=== PATIENT | male | born 1945 | race Caucasian/White ===

== ENCOUNTER 2018-08-24 05:20 | Inpatient (IN) | payer MEDICARE, MEDICAID ==
[~2018-08-24] VITALS: Ht 154.9 cm; Wt 70.9 kg
[2018-08-24] MEDS ORDERED: ALBU2.5V14 NEB (06:15)
[2018-08-24 11:01] VITALS: BP 171/96
[2018-08-24] MEDS ORDERED: METO50TA29 PO (13:08)
[2018-08-24] MEDS ORDERED: TIOT18CA IH (13:08)
[2018-08-24] MEDS ORDERED: PANT40TA3 PO (13:08)
[2018-08-24] MEDS ORDERED: MAG HYDROX/AL HYDROX/SIMETH 30 ML ORAL.SUSP PO PRN (13:15)
[2018-08-24] MEDS ORDERED: METHYL SALICYLATE/MENTHOL TOPICAL OINTMENT 29GM TUBE. TP PRN (13:15)
[2018-08-24 15:43] VITALS: BP 153/94
[2018-08-24 16:08] VITALS: BP 153/94
[2018-08-24 16:47] VITALS: BP 159/94
[2018-08-24] MEDS: ACETAMINOPHEN 325 MG TABLET PO PRN (17:04)
--- NOTE | 2018-08-24 20:04 | CONS ---
DATE OF CONSULTATION: 08/24/2018 ATTENDING PHYSICIAN: MD Dr. Inder Pandey did not note. REASON FOR CONSULTATION: We are asked to see this patient for medical consultation. HISTORY OF PRESENT ILLNESS: The patient is a 73-year-old gentleman recently transferred here from [facility]. He is a retired vice president compliance. He has major depression with some psychotic features, mood changes and some suicidal ideation. When he first showed up, he complained of some right-sided chest wall pain, noncardiac in nature. I ordered a stat 12-lead EKG. It showed a sinus rhythm, rate of 70 beats per minute. There are no acute ST segment changes and I examined the patient. He is comfortable right now and pain free. PAST MEDICAL HISTORY: His past medical history is gleaned from the old records. He has a longstanding history of major depression, asthma due to seasonal allergies, asthmatic bronchitis, obesity, major depression, gastroesophageal reflux disease, profound hearing loss and essential hypertension. MEDICATIONS: Current medicines were reviewed. He takes albuterol as needed, metoprolol, Spiriva, and various p.r.n. medications. ALLERGIES: He has ALLERGIES TO KEFLEX. SOCIAL HISTORY: Nonsmoker, nondrinker. FAMILY HISTORY: Unobtainable. REVIEW OF SYSTEMS: Review of systems is significant for major depression symptoms and suicidal ideation. He has gastroesophageal reflux. He denied any fevers or chills. All other systems were reviewed and determined to be negative. PHYSICAL EXAMINATION: GENERAL: When I saw him, this is a pleasant, but a little bit paranoid gentleman, who was hard of hearing, but is otherwise alert. VITAL SIGNS: His initial vital signs showed a blood pressure of 153/90, pulse is 70 and regular. He was afebrile. HEENT: Head is without trauma. The pupils are reactive. Sclerae are nonicteric. Oropharynx is clear. NECK: Supple. No bruits identified. LUNGS: Otherwise clear. CARDIOVASCULAR: Examination showed regular heart tones. No obvious gallops. Peripheral pulses are palpable and full. ABDOMEN: Soft, scaphoid, nontender, no organomegaly. Bowel sounds are normoactive. EXTREMITIES: Showed no cyanosis or edema. NEUROLOGIC: Focally intact. Speech is fluent. He has no focal deficits. LABORATORY DATA: Pertinent laboratory studies done earlier today showed hemoglobin of 14.0 g/dL, white count of 7000. Urinalysis showed a specific gravity of 1.028. His sodium is 145 mEq, potassium 4.0, creatinine is 0.6 mg/dL. Transaminases and liver panels are all normal. IMPRESSION: 1. This 73-year-old gentleman is admitted with mood disturbances, superimposed underlying depression. 2. He had atypical chest pain, which is noncardiac in nature. 3. Gastroesophageal reflux disease. 4. Essential hypertension. 5. The patient is medically stable. RECOMMENDATIONS: Home meds were reviewed and should be continued. This patient is medically stable. Thank you again for asking us to see this patient for medical evaluation. We shall gladly follow along during the course of his inpatient stay on the behavioral unit. TREVON TUTTLE MD DR: FRANK/nts JOB#: [id number] / [id number] HAYLIE Bee MD
--- NOTE | 2018-08-24 20:43 | PDOC ---
Exam Note: João Note: Please also refer to the separate dictated note~for this date of service dictated separately.~Patient seen individually. Discussed the patient with Nursing staff reviewed the chart.~Reviewed interim history and current functioning. Reviewed vital signs,~Labs/ Radiology~and current medications noted below. Continue current treatment with the changes noted in the dictated addendum note Assessment: Vital Signs: Vital Signs Date Time Temp Pulse Resp B/P (MAP) Pulse Ox O2 Delivery O2 Flow Rate FiO2 08/24/18 16:47 64 159/94 (115) Room Air 08/24/18 16:08 98.1 20 97 Labs: Laboratory Tests Test 08/24/18 13:41 Magnesium Level 2.0 mg/dL (1.8-2.4) Current Medications: Meds: Current Medications Acetaminophen (Tylenol) 650 mg PRN Q6HRS PRN PO PAIN / TEMP Last administered on 08/24/18at 17:04; Start 08/24/18 at 13:15 Multi-Ingredient Ointment (Analgesic [place]) 1 denny PRN QID PRN TP MUSCLE PAIN; Start 08/24/18 at 13:15 Al Hydroxide/Mg Hydroxide (Mylanta Plus Xs) 15 ml PRN AFTMEALHC PRN PO DYSPEPSIA; Start 08/24/18 at 13:15 Magnesium Hydroxide (Milk Of Magnesia) 2,400 mg PRN QHS PRN PO CONSTIPATION; Start 08/24/18 at 13:15 Olanzapine (ZyPREXA ZYDIS) 2.5 mg PRN Q2HR PRN PO PSYCHOSIS/AGITATION Last administered on 08/24/18at 16:15; Start 08/24/18 at 15:45 Lorazepam (Ativan) 0.25 mg Q2HR PRN PO ANXIETY / AGITATION; Start 08/24/18 at 1 5:45 Duloxetine HCl (Cymbalta) 30 mg DAILY PO ; Start 08/25/18 at 09:00 Aripiprazole (Abilify) 2 mg DAILY PO ; Start 08/25/18 at 09:00 Active Scripts Active Reported Spiriva (Tiotropium [place]) 18 Mcg Cap.w.dev 5 Mcg IH DAILY Protonix (Pantoprazole Sodium) 40 Mg Tablet.dr 40 Mg PO DAILY06 Metoprolol Succinate ( Xl ) (Metoprolol Succinate) 50 Mg Tab.er.24h 50 Mg PO DAILY Albuterol Sulfate Conc Neb Soln (Albuterol Sulfate) 2.5 Mg/0.5 Ml Vial.neb 2.5 Mg NEB PRN Q6HRS PRN I have reviewed the current psychotropics carefully including drug interactions. Risk benefit ratio favors no change other than as noted in my dictated progress note. Diagnosis: Problems: (1) Anxiety disorder (2) Major depressive disorder, recurrent episode (3) Impulse control disorder (4) Psychosis, atypical (5) Psychotic depression TIERRA COELHO MD Aug 24, 2018 20:43
[2018-08-24] MEDS: MAGNESIUM HYDROXIDE 2,400 MG/30 ML ORAL.SUSP. PO PRN (22:01)
[2018-08-25 06:01] VITALS: BP 110/74
[2018-08-25] MEDS ORDERED: ARIPiprazole 2 MG TABLET PO SCH (09:00)
[2018-08-25] MEDS: DULoxetine HCL 30 MG CAPSULE.DR PO SCH (09:04)
[2018-08-25 10:46] LABS: THYROID STIM HORMONE (TSH) 0.647 uIU/mL (0.358-3.740)
[2018-08-25 11:06] LABS: THYROXINE 4.8 ug/dL (4.5-12.0)
--- NOTE | 2018-08-25 11:19 | HP ---
ADMIT DATE: 08/24/2018 PSYCHIATRIC ADMISSION HISTORY/EVALUATION This is a late entry, date of service 08/24/2018 covers elements not covered in my initial note. IDENTIFYING DATA: We met with the patient at length the evening of 08/24/2018 and I had been called around midnight by nursing staff after the patient was referred to us from [facility] Emergency Room where he presented from home with active suicidal ideation, worsening symptoms of depression, failure for outpatient treatment and a prior inpatient hospitalization at [facility]. His family, specifically his sister is involved in his care. The patient has been increasingly depressed, hopeless, helpless, worthless, had an active plan to slash his wrists and end his life and contacted the sister who arranged for him to get to the Emergency Room and then referred to us with chief complaint, "Yes, I want to just be . I won't do anything here." HISTORY OF PRESENT ILLNESS: The patient has a history of worsening symptoms of depression, hopelessness, helplessness, worthlessness, sleep and appetite changes. He lives in an apartment by himself, does not drive, takes the bus to get his groceries and feels overwhelmed with his general living situation. He admits to the suicidal ideation as noted above to slash his wrists or slash his carotid artery. He has been somewhat paranoid as well. Additionally, he is somewhat hard of hearing, which makes it even harder for him to relate to people. No clear history of bipolar disorder. He does have some short-term memory deficits. PAST PSYCHIATRIC HISTORY: As above, he was an inpatient at [facility] in the past, but did not follow up with outpatient treatment and did not continue his prescribed psychotropics post-discharge. PAST MEDICAL HISTORY: Asthma, seasonal allergies, bronchitis, eosinophilia, GERD, hard of hearing, hypertension. DIET: Regular. ACCU-CHEKS: None. Takes medications whole. CODE STATUS: Full code. ALLERGIES: HYDROCODONE, BENICAR. FAMILY HISTORY: Noncontributory. SOCIAL HISTORY: No history of alcohol, drug abuse, physical, sexual, or elder abuse history is noted. He is not known to be a perpetrator. 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 REACTION TO HOSPITALIZATION: The patient accepting of it. ASSETS: Supportive sister, reasonably cognitively intact. MENTAL STATUS EXAMINATION: The patient was seen individually evening of 08/24/2018. He is oriented to himself, situation. He was aware of the year, felt the month was July knew the president was president Nikole, unable to do serial 7's other than one step. He is hard of hearing. Speech has some latency, coherent, often responses monosyllabic. Abstraction fair, computation impaired, language function intact, attention span short. Mood is depressed, anxious. Affect is mood congruent. He denies active suicidal ideation when I interviewed him. LABORATORY DATA: Reviewed. IMPRESSION: Major depressive disorder, recurrent with rule out psychotic features; anxiety disorder, unspecified; mild cognitive impairment. Rest diagnoses as above. PLAN: Admit to Geropsychiatry Unit at [facility]. I will see the patient individually from a psychiatric standpoint. Medical followup with Dr. Norman. We will get past psychiatric records from [facility]. Start the patient on Cymbalta 30 mg a day with plan to gradually increase it and Abilify 2 mg a day for his psychotic symptoms and to augment the Cymbalta. We will make further decisions as the hospitalization progresses and would like to ensure that outpatient followup post-discharge is definitely implemented this time. TIERRA COELHO MD DR: MIRIAM/neville JOB#: [id number] / [id number]
[2018-08-25 16:01] VITALS: BP 135/84
--- NOTE | 2018-08-25 22:46 | PDOC ---
Exam Note: João Note: Please also refer to the separate dictated note~for this date of service dictated separately.~Patient seen individually. Discussed the patient with Nursing staff reviewed the chart.~Reviewed interim history and current functioning. Reviewed vital signs,~Labs/ Radiology~and current medications noted below. Continue current treatment with the changes noted in the dictated addendum note Assessment: Vital Signs: Vital Signs Date Time Temp Pulse Resp B/P (MAP) Pulse Ox O2 Delivery O2 Flow Rate FiO2 08/25/18 16:01 98.4 71 20 135/84 (101) 98 08/25/18 06:01 Room Air I&O Intake and Output 08/25/18 06:59 Intake Total 360 ml Balance 360 ml Intake Oral 360 ml Current Medications: Meds: Current Medications Acetaminophen (Tylenol) 650 mg PRN Q6HRS PRN PO PAIN / TEMP Last administered on 08/24/18at 17:04; Start 08/24/18 at 13:15 Multi-Ingredient Ointment (Analgesic [place]) 1 denny PRN QID PRN TP MUSCLE PAIN; Start 08/24/18 at 13:15 Al Hydroxide/Mg Hydroxide (Mylanta Plus Xs) 15 ml PRN AFTMEALHC PRN PO DYSPEPSIA; Start 08/24/18 at 13:15 Magnesium Hydroxide (Milk Of Magnesia) 2,400 mg PRN QHS PRN PO CONSTIPATION Last administered on 08/24/18at 22:01; Start 08/24/18 at 13:15 Olanzapine (ZyPREXA ZYDIS) 2.5 mg PRN Q2HR PRN PO PSYCHOSIS/AGITATION Last administered on 08/25/18at 16:13; Start 08/24/18 at 15:45 Lorazepam (Ativan) 0.25 mg Q2HR PRN PO ANXIETY / AGITATION; Start 08/24/18 at 15:45 Duloxetine HCl (Cymbalta) 30 mg DAILY PO Last administered on 08/25/18at 09:04; Start 08/25/18 at 09:00 Aripiprazole (Abilify) 2 mg DAILY PO Last administered on 08/25/18at 09:04; Start 08/25/18 at 09:00; Stop 08/25/18 at 18:45; Status DC Risperidone (RisperDAL) 0.5 mg DAILY PO ; Start 08/26/18 at 09:00 Active Scripts Active Reported Spiriva (Tiotropium [place]) 18 Mcg Cap.w.dev 5 Mcg IH DAILY Protonix (Pantoprazole Sodium) 40 Mg Tablet.dr 40 Mg PO DAILY06 Metoprolol Succinate ( Xl ) (Metoprolol Succinate) 50 Mg Tab.er.24h 50 Mg PO DAILY Albuterol Sulfate Conc Neb Soln (Albuterol Sulfate) 2.5 Mg/0.5 Ml Vial.neb 2.5 Mg NEB PRN Q6HRS PRN I have reviewed the current psychotropics carefully including drug interactions. Risk benefit ratio favors no change other than as noted in my dictated progress note. Diagnosis: Problems: (1) Anxiety disorder (2) Major depressive disorder, recurrent episode (3) Impulse control disorder (4) Psychosis, atypical (5) Psychotic depression TIERRA COELHO MD Aug 25, 2018 22:46
[2018-08-26 04:09] LABS: HEMOGLOBIN A1C 5.5 % (4.8-5.6)
[2018-08-26 05:58] VITALS: BP 148/90
[2018-08-26] MEDS: DULoxetine HCL 30 MG CAPSULE.DR PO SCH (08:57)
[2018-08-26] MEDS: risperiDONE 0.25 MG TABLET. PO SCH (08:58)
[2018-08-26] MEDS: ACETAMINOPHEN 325 MG TABLET PO PRN (10:16)
--- NOTE | 2018-08-26 11:58 | PN ---
DATE: 08/25/2018 PSYCHIATRIC PROGRESS NOTE This late entry of 08/25/2018 covers elements not covered in my initial note. SUBJECTIVE: I met with the patient in the evening. The patient slept 10 hours previous night. Per nursing report, the patient has been hyper-catholic, psychotic, paranoid. He was questioning why the nursing staffs are scanning his forehead for the temperature and believed there was some nefarious reason for it. He was accusatory to staff. Nursing staff feels he has significantly greater amount of psychotic symptoms than we were initially aware of. No CV, , pulmonary, eye system symptoms on review. Hard of hearing. I had to talk loudly into his ear. MENTAL STATUS EXAM: Oriented to himself and situation. Speech has some latency, coherent. He was somewhat sedated as I met with him in the evening following the p.r.n. Zyprexa. Abstraction fair, computation impaired, language function intact, attention span short. Mood and affect somewhat withdrawn. LABORATORY DATA: Reviewed. IMPRESSION: Major depressive disorder with psychotic features, possible schizoaffective disorder, mixed with psychotic features, hard of hearing. Rest unchanged. PLAN: Continue current psychotropics. Cymbalta 30 mg a day with a plan to increase it, Zyprexa p.r.n., Ativan p.r.n. Change Abilify 2 mg a day to Risperdal 0.5 mg p.o. at bedtime given his significant psychotic symptoms. May consider a mood stabilizer depending on how he does with the initial changes. Reviewed all of these at some length. MAN Kayce COELHO MD DR: MIRIAM/neville JOB#: [id number] / [id number]
--- NOTE | 2018-08-26 14:52 | EKG ---
[address] [address] Test Date: 2018-08-24 Test Time: 17:43:18 Pat Name: JACQUELINE DE LA PAZ Department: Room: [address] [place] [address] Gender: M Director News: MAGDA : 1945 Requested By: TREVON TUTTLE Order Number: [id number] Reading MD: Mino Yang Measurements Intervals [place] Rate: 61 P: 22 TX: 180 QRS: 46 QRSD: 90 T: 31 QT: 438 QTc: 442 Interpretive Statements SINUS RHYTHM NONSPECIFIC ST-T WAVE CHANGES. Electronically Signed On 09-16-2018 9:31:49 CDT by Mino Yang
[2018-08-26 15:46] VITALS: BP 159/92
[2018-08-26] MEDS: CHOLECALCIFEROL (VITAMIN D3) 50,000 UNIT CAPSULE PO SCH ×2 (17:30→18:07)
--- NOTE | 2018-08-26 22:38 | PDOC ---
Exam Note: João Note: Please also refer to the separate dictated note~for this date of service dictated separately.~Patient seen individually. Discussed the patient with Nursing staff reviewed the chart.~Reviewed interim history and current functioning. Reviewed vital signs,~Labs/ Radiology~and current medications noted below. Continue current treatment with the changes noted in the dictated addendum note Assessment: Vital Signs: Vital Signs Date Time Temp Pulse Resp B/P (MAP) Pulse Ox O2 Delivery O2 Flow Rate FiO2 08/26/18 15:46 97.3 109 18 159/92 (114) 98 08/25/18 06:01 Room Air I&O Intake and Output 08/26/18 07:00 Intake Total 940 ml Balance 940 ml Intake Oral 940 ml Current Medications: Meds: Current Medications Acetaminophen (Tylenol) 650 mg PRN Q6HRS PRN PO PAIN / TEMP Last administered on 08/26/18at 10:16; Start 08/24/18 at 13:15 Multi-Ingredient Ointment (Analgesic [place]) 1 denny PRN QID PRN TP MUSCLE PAIN; Start 08/24/18 at 13:15 Al Hydroxide/Mg Hydroxide (Mylanta Plus Xs) 15 ml PRN AFTMEALHC PRN PO DYSPEPSIA; Start 08/24/18 at 13:15 Magnesium Hydroxide (Milk Of Magnesia) 2,400 mg PRN QHS PRN PO CONSTIPATION Last administered on 08/24/18at 22:01; Start 08/24/18 at 13:15 Olanzapine (ZyPREXA ZYDIS) 2.5 mg PRN Q2HR PRN PO PSYCHOSIS/AGITATION Last administered on 08/25/18at 16:13; Start 08/24/18 at 15:45 Lorazepam (Ativan) 0.25 mg Q2HR PRN PO ANXIETY / AGITATION; Start 08/24/18 at 15:45 Duloxetine HCl (Cymbalta) 30 mg DAILY PO Last administered on 08/26/18at 08:57; Start 08/25/18 at 09:00 Aripiprazole (Abilify) 2 mg DAILY PO Last administered on 08/25/18 09:04; Start 08/25/18 at 09:00; Stop 08/25/18 at 18:45; Status DC Risperidone (RisperDAL) 0.5 mg DAILY PO Last administered on 6/10/19at 08:58; Start 08/26/18 at 09:00 Vitamin D (Vitamin D3) 50,000 unit WEEKLY PO ; Start 08/26/18 at 17:30 Active Scripts Active Reported Spiriva (Tiotropium [place]) 18 Mcg Cap.w.dev 5 Mcg IH DAILY Protonix (Pantoprazole Sodium) 40 Mg Tablet.dr 40 Mg PO DAILY06 Metoprolol Succinate ( Xl ) (Metoprolol Succinate) 50 Mg Tab.er.24h 50 Mg PO DAILY Albuterol Sulfate Conc Neb Soln (Albuterol Sulfate) 2.5 Mg/0.5 Ml Vial.neb 2.5 Mg NEB PRN Q6HRS PRN I have reviewed the current psychotropics carefully including drug interactions. Risk benefit ratio favors no change other than as noted in my dictated progress note. Diagnosis: Problems: (1) Anxiety disorder (2) Major depressive disorder, recurrent episode (3) Impulse control disorder (4) Psychosis, atypical (5) Psychotic depression TIERRA COELHO MD Aug 26, 2018 22:38
[2018-08-27 05:39] VITALS: BP 153/82
[2018-08-27] MEDS: risperiDONE 0.25 MG TABLET. PO SCH (08:44)
[2018-08-27] MEDS: DULoxetine HCL 30 MG CAPSULE.DR PO SCH (08:44)
[2018-08-27 09:06] LABS: BASO % 1 % (0-3); EOS # 0.2 x10^3/uL (0.0-0.7); EOS % 4 % (0-3); HEMATOCRIT 44.5 % (39.0-53.0); HEMOGLOBIN 14.8 g/dL (13.0-17.5); LYMPH # 0.6 x10^3/uL (1.0-4.8); LYMPH % 14 % (24-48); MEAN CORPUSCULAR HEMOGLOBIN 32 pg (25-35); MEAN CORPUSCULAR HGB CONC 33 g/dL (31-37); MEAN CORPUSCULAR VOLUME 96 fL (79-100); MONO # 0.3 x10^3/uL (0.0-1.1); MONO % 7 % (0-9); NEUT # 3.5 x10^3uL (1.8-7.7); NEUT % 74 % (31-73); PLATELET COUNT 244 x10^3/uL (140-400); RED BLOOD COUNT 4.64 x10^6/uL (4.30-5.70); RED CELL DISTRIBUTION WIDTH 13.7 % (11.5-14.5); WHITE BLOOD COUNT 4.7 x10^3/uL (4.0-11.0)
[2018-08-27 09:25] LABS: ALBUMIN 3.4 g/dL (3.4-5.0); ALBUMIN/GLOBULIN RATIO 0.9 (1.0-1.7); CALCIUM 8.9 mg/dL (8.5-10.1); GFR 73.5; POTASSIUM 3.8 mmol/L (3.5-5.1); TOTAL BILIRUBIN 0.4 mg/dL (0.2-1.0)
[2018-08-27 16:35] VITALS: BP 129/90
--- NOTE | 2018-08-27 22:44 | PDOC ---
Exam Note: João Note: Please also refer to the separate dictated note~for this date of service dictated separately.~Patient seen individually. Discussed the patient with Nursing staff reviewed the chart.~Reviewed interim history and current functioning. Reviewed vital signs,~Labs/ Radiology~and current medications noted below. Continue current treatment with the changes noted in the dictated addendum note Assessment: Vital Signs: Vital Signs Date Time Temp Pulse Resp B/P (MAP) Pulse Ox O2 Delivery O2 Flow Rate FiO2 08/27/18 16:35 98.4 108 22 129/90 (103) 97 08/25/18 06:01 Room Air I&O Intake and Output 08/27/18 07:00 Intake Total 960 ml Balance 960 ml Intake Oral 960 ml Labs: Laboratory Tests Test 08/27/18 08:50 White Blood Count 4.7 x10^3/uL (4.0-11.0) Red Blood Count 4.64 x10^6/uL (4.30-5.70) Hemoglobin 14.8 g/dL (13.0-17.5) Hematocrit 44.5 % (39.0-53.0) Mean Corpuscular Volume 96 fL (79-100) Mean Corpuscular Hemoglobin 32 pg (25-35) Mean Corpuscular Hemoglobin Concent 33 g/dL (31-37) Red Cell Distribution Width 13.7 % (11.5-14.5) Platelet Count 244 x10^3/uL (140-400) Neutrophils (%) (Auto) 74 % (31-73) H Lymphocytes (%) (Auto) 14 % (24-48) L Monocytes (%) (Auto) 7 % (0-9) Eosinophils (%) (Auto) 4 % (0-3) H Basophils (%) (Auto) 1 % (0-3) Neutrophils # (Auto) 3.5 x10^3uL (1.8-7.7) Lymphocytes # (Auto) 0.6 x10^3/uL (1.0-4.8) L Monocytes # (Auto) 0.3 x10^3/uL (0.0-1.1) Eosinophils # (Auto) 0.2 x10^3/uL (0.0-0.7) Basophils # (Auto) 0.0 x10^3/uL (0.0-0.2) Sodium Level 142 mmol/L (136-145) Potassium Level 3.8 mmol/L (3.5-5.1) Chloride Level 105 mmol/L (98-107) Carbon Dioxide Level 29 mmol/L (21-32) Anion Gap 8 (6-14) Blood Urea Nitrogen 17 mg/dL (8-26) Creatinine 1.0 mg/dL (0.7-1.3) Estimated GFR (Cockcroft-Gault) 73.5 BUN/Creatinine Ratio 17 (6-20) Glucose Level 163 mg/dL (70-99) H Calcium Level 8.9 mg/dL (8.5-10.1) Total Bilirubin 0.4 mg/dL (0.2-1.0) Aspartate Amino Transferase (AST) 14 U/L (15-37) L Alanine Aminotransferase (ALT) 21 U/L (16-63) Alkaline Phosphatase 61 U/L (46-116) Total Protein 7.0 g/dL (6.4-8.2) Albumin 3.4 g/dL (3.4-5.0) Albumin/Globulin Ratio 0.9 (1.0-1.7) L Current Medications: Meds: Current Medications Acetaminophen (Tylenol) 650 mg PRN Q6HRS PRN PO PAIN / TEMP Last administered on 08/26/18at 10:16; Start 08/24/18 at 13:15 Multi-Ingredient Ointment (Analgesic [place]) 1 denny PRN QID PRN TP MUSCLE PAIN; Start 08/24/18 at 13:15 Al Hydroxide/Mg Hydroxide (Mylanta Plus Xs) 15 ml PRN AFTMEALHC PRN PO DYSPEPSIA; Start 08/24/18 at 13:15 Magnesium Hydroxide (Milk Of Magnesia) 2,400 mg PRN QHS PRN PO CONSTIPATION Last administered on 08/24/18at 22:01; Start 08/24/18 at 13:15 Olanzapine (ZyPREXA ZYDIS) 2.5 mg PRN Q2HR PRN PO PSYCHOSIS/AGITATION Last administered on 08/27/18at 15:27; Start 08/24/18 at 15:45 Lorazepam (Ativan) 0.25 mg Q2HR PRN PO ANXIETY / AGITATION; Start 08/24/18 at 15:45 Duloxetine HCl (Cymbalta) 30 mg DAILY PO Last administered on 08/27/18at 08:44; Start 08/25/18 at 09:00; Stop 08/27/18 at 16:42; Status DC Aripiprazole (Abilify) 2 mg DAILY PO Last administered on 08/25/18at 09:04; Start 08/25/18 at 09:00; Stop 08/25/18 at 18:45; Status DC Risperidone (RisperDAL) 0.5 mg DAILY PO Last administered on 08/27/18at 08:44; Start 08/26/18 at 09:00 Vitamin D (Vitamin D3) 50,000 unit WEEKLY PO ; Start 08/26/18 at 17:30 Duloxetine HCl (Cymbalta) 60 mg DAILY PO ; Start 08/28/18 at 09:00 Active Scripts Active Reported Spiriva (Tiotropium [place]) 18 Mcg Cap.w.dev 5 Mcg IH DAILY Protonix (Pantoprazole Sodium) 40 Mg Tablet.dr 40 Mg PO DAILY06 Metoprolol Succinate ( Xl ) (Metoprolol Succinate) 50 Mg Tab.er.24h 50 Mg PO DAILY Albuterol Sulfate Conc Neb Soln (Albuterol Sulfate) 2.5 Mg/0.5 Ml Vial.neb 2.5 Mg NEB PRN Q6HRS PRN I have reviewed the current psychotropics carefully including drug interactions. Risk benefit ratio favors no change other than as noted in my dictated progress note. Diagnosis: Problems: (1) Anxiety disorder (2) Major depressive disorder, recurrent episode (3) Impulse control disorder (4) Psychosis, atypical (5) Psychotic depression TIERRA COELHO MD Aug 27, 2018 22:44
--- NOTE | 2018-08-28 00:51 | PN ---
DATE: 08/26/2018 PSYCHIATRIC PROGRESS NOTE This late entry 08/26/2018 covers elements not covered in my initial note. SUBJECTIVE: I met with the patient in the evening. The patient slept 7-3/4 hours previous night. He has had no behavior problems, remains hard of hearing. He has been paranoid, suspicious, and resistive to medications. He has received Zyprexa p.r.n. and was little sedated in the evening as I met with him. REVIEW OF SYSTEMS: Hard of hearing. No CV, , pulmonary, eye system symptoms on review. MENTAL STATUS EXAM: Oriented to himself and situation. Speech is coherent, has some latency. Abstraction fair. Computation impaired. Language function intact. Attention span short. Mood and affect still somewhat withdrawn. LABORATORY DATA: Reviewed. IMPRESSION: Major depressive disorder with psychotic features; psychotic disorder, unspecified versus schizoaffective disorder, bipolar type, with acute exacerbation. Rest unchanged. PLAN: No change from initial note. MAN Kayce COELHO MD DR: MIRIAM/neville JOB#: [id number] / [id number]
[2018-08-28 05:58] VITALS: BP 129/77
[2018-08-28] MEDS: risperiDONE 0.25 MG TABLET. PO SCH (08:12)
[2018-08-28] MEDS: DULoxetine HCL 60 MG CAPSULE.DR PO SCH (08:12)
[2018-08-28 15:43] VITALS: BP 131/83
--- NOTE | 2018-08-28 23:02 | PDOC ---
Exam Note: João Note: Please also refer to the separate dictated note~for this date of service dictated separately.~Patient seen individually. Discussed the patient with Nursing staff reviewed the chart.~Reviewed interim history and current functioning. Reviewed vital signs,~Labs/ Radiology~and current medications noted below. Continue current treatment with the changes noted in the dictated addendum note Assessment: Vital Signs: Vital Signs Date Time Temp Pulse Resp B/P (MAP) Pulse Ox O2 Delivery O2 Flow Rate FiO2 08/28/18 15:43 98.1 110 22 131/83 (99) 96 08/25/18 06:01 Room Air I&O Intake and Output 08/28/18 06:59 Intake Total 1080 ml Balance 1080 ml Intake Oral 1080 ml Current Medications: Meds: Current Medications Acetaminophen (Tylenol) 650 mg PRN Q6HRS PRN PO PAIN / TEMP Last administered on 08/26/18at 10:16; Start 08/24/18 at 13:15 Multi-Ingredient Ointment (Analgesic [place]) 1 denny PRN QID PRN TP MUSCLE PAIN; S tart 08/24/18 at 13:15 Al Hydroxide/Mg Hydroxide (Mylanta Plus Xs) 15 ml PRN AFTMEALHC PRN PO DYSPEPSIA; Start 08/24/18 at 13:15 Magnesium Hydroxide (Milk Of Magnesia) 2,400 mg PRN QHS PRN PO CONSTIPATION Last administered on 08/24/18at 22:01; Start 08/24/18 at 13:15 Olanzapine (ZyPREXA ZYDIS) 2.5 mg PRN Q2HR PRN PO PSYCHOSIS/AGITATION Last administered on 08/27/18at 15:27; Start 08/24/18 at 15:45 Lorazepam (Ativan) 0.25 mg Q2HR PRN PO ANXIETY / AGITATION; Start 08/24/18 at 15:45 Duloxetine HCl (Cymbalta) 30 mg DAILY PO Last administered on 08/27/18at 08:44; Start 08/25/18 at 09:00; Stop 08/27/18 at 16:42; Status DC Aripiprazole (Abilify) 2 mg DAILY PO Last administered on 08/25/18at 09:04; Start 08/25/18 at 09:00; Stop 08/25/18 at 18:45; Status DC Risperidone (RisperDAL) 0.5 mg DAILY PO Last administered on 08/28/18at 08:12; Start 08/26/18 at 09:00; Stop 08/28/18 at 16:48; Status DC Vitamin D (Vitamin D3) 50,000 unit WEEKLY PO ; Start 08/26/18 at 17:30 Duloxetine HCl (Cymbalta) 60 mg DAILY PO Last administered on 08/28/18at 08:12; Start 08/28/18 at 09:00 Risperidone (RisperDAL) 1 mg DAILY SL ; Start 08/29/18 at 09:00 Active Scripts Active Reported Spiriva (Tiotropium [place]) 18 Mcg Cap.w.dev 5 Mcg IH DAILY Protonix (Pantoprazole Sodium) 40 Mg Tablet.dr 40 Mg PO DAILY06 Metoprolol Succinate ( Xl ) (Metoprolol Succinate) 50 Mg Tab.er.24h 50 Mg PO DAILY Albuterol Sulfate Conc Neb Soln (Albuterol Sulfate) 2.5 Mg/0.5 Ml Vial.neb 2.5 Mg NEB PRN Q6HRS PRN I have reviewed the current psychotropics carefully including drug interactions. Risk benefit ratio favors no change other than as noted in my dictated progress note. Diagnosis: Problems: (1) Anxiety disorder (2) Major depressive disorder, recurrent episode (3) Impulse control disorder (4) Psychosis, atypical (5) Psychotic depression TIERRA COELHO MD Aug 28, 2018 23:02
--- NOTE | 2018-08-29 00:17 | PN ---
DATE: 08/27/2018 PSYCHIATRIC PROGRESS NOTE This late entry of 08/27/2018 covers elements not covered in my initial note. SUBJECTIVE: I met with the patient in the evening. The patient slept 5-1/4 hours previous night. He remains paranoid, suspicious, and when the nursing staff took his temperature by the temporal-frontal scan, he is convinced they implanted a chip in him. Nothing staff can do can talk him out of it. Then, I addressed this with him. In the future, nursing staff will check his temperature by the oral thermometer traditional use. REVIEW OF SYSTEMS: No CV, , pulmonary, eye system symptoms on review. He is hard of hearing. MENTAL STATUS EXAM: Oriented to himself and situation. Speech has some latency, coherent, often responses monosyllabic. Abstraction fair, computation impaired, language function intact, attention span short. Mood and affect, somewhat paranoid, anxious, still depressed. LABORATORY DATA: Reviewed. IMPRESSION: Major depressive disorder with psychotic features, possible schizoaffective disorder, bipolar type, mixed with psychotic features, rest unchanged, mild cognitive impairment. PLAN: Increase Cymbalta to 60 mg a day after he has been on 30 for 3 days. Continue Risperdal 0.5 mg daily, may need to increase this if psychosis persists. TIERRA COELHO MD DR: MIRIAM/neville JOB#: [id number] / [id number]
[2018-08-29 06:09] VITALS: BP 165/92
[2018-08-29] MEDS: DULoxetine HCL 60 MG CAPSULE.DR PO SCH (08:14)
[2018-08-29] MEDS: risperiDONE ORAL 1 MG/ML 30ml BOTTLE. SL SCH (08:15)
[2018-08-29] MEDS: ACETAMINOPHEN 325 MG TABLET PO PRN (12:03)
[2018-08-29] MEDS: LORazepam 0.5 MG TABLET PO PRN (15:29)
[2018-08-29 16:03] VITALS: BP 131/81
--- NOTE | 2018-08-29 22:21 | PDOC ---
Exam Note: João Note: Please also refer to the separate dictated note~for this date of service dictated separately.~Patient seen individually. Discussed the patient with Nursing staff reviewed the chart.~Reviewed interim history and current functioning. Reviewed vital signs,~Labs/ Radiology~and current medications noted below. Continue current treatment with the changes noted in the dictated addendum note Assessment: Vital Signs: Vital Signs Date Time Temp Pulse Resp B/P (MAP) Pulse Ox O2 Delivery O2 Flow Rate FiO2 08/29/18 16:03 98.0 98 22 131/81 (98) 98 08/25/18 06:01 Room Air I&O Intake and Output 08/29/18 07:00 Intake Total 800 ml Balance 800 ml Intake Oral 800 ml Current Medications: Meds: Current Medications Acetaminophen (Tylenol) 650 mg PRN Q6HRS PRN PO PAIN / TEMP Last administered on 08/29/18at 12:03; Start 08/24/18 at 13:15 Multi-Ingredient Ointment (Analgesic [place]) 1 denny PRN QID PRN TP MUSCLE PAIN; Start 08/24/18 at 13:15 Al Hydroxide/Mg Hydroxide (Mylanta Plus Xs) 15 ml PRN AFTMEALHC PRN PO DYSPEPSIA; Start 08/24/18 at 13:15 Magnesium Hydroxide (Milk Of Magnesia) 2,400 mg PRN QHS PRN PO CONSTIPATION Last administered on 08/24/18at 22:01; Start 08/24/18 at 13:15 Olanzapine (ZyPREXA ZYDIS) 2.5 mg PRN Q2HR PRN PO PSYCHOSIS/AGITATION Last administered on 08/27/18at 15:27; Start 08/24/18 at 15:45 Lorazepam (Ativan) 0.25 mg Q2HR PRN PO ANXIETY / AGITATION Last administered on 08/29/18at 15:29; Start 08/24/18 at 15:45 Duloxetine HCl (Cymbalta) 30 mg DAILY PO Last administered on 08/27/18at 08:44; Start 08/25/18 at 09:00; Stop 08/27/18 at 16:42; Status DC Aripiprazole (Abilify) 2 mg DAILY PO Last administered on 08/25/18 09:04; Start 08/25/18 at 09:00; Stop 08/25/18 at 18:45; Status DC Risperidone (RisperDAL) 0.5 mg DAILY PO Last administered on 08/28/18at 08:12; Start 08/26/18 at 09:00; Stop 08/28/18 at 16:48; Status DC Vitamin D (Vitamin D3) 50,000 unit WEEKLY PO ; Start 08/26/18 at 17:30 Duloxetine HCl (Cymbalta) 60 mg DAILY PO Last administered on 08/29/18at 08:14; Start 08/28/18 at 09:00 Risperidone (RisperDAL) 1 mg DAILY SL Last administered on 08/29/18at 08:15; Start 08/29/18 at 09:00 Active Scripts Active Reported Spiriva (Tiotropium [place]) 18 Mcg Cap.w.dev 5 Mcg IH DAILY Protonix (Pantoprazole Sodium) 40 Mg Tablet.dr 40 Mg PO DAILY06 Metoprolol Succinate ( Xl ) (Metoprolol Succinate) 50 Mg Tab.er.24h 50 Mg PO DAILY Albuterol Sulfate Conc Neb Soln (Albuterol Sulfate) 2.5 Mg/0.5 Ml Vial.neb 2.5 Mg NEB PRN Q6HRS PRN I have reviewed the current psychotropics carefully including drug interactions. Risk benefit ratio favors no change other than as noted in my dictated progress note. Diagnosis: Problems: (1) Anxiety disorder (2) Major depressive disorder, recurrent episode (3) Impulse control disorder (4) Psychosis, atypical (5) Psychotic depression TIERRA COELHO MD Aug 29, 2018 22:21
[2018-08-30 06:42] VITALS: BP 136/57
[2018-08-30] MEDS: DULoxetine HCL 60 MG CAPSULE.DR PO SCH (08:39)
[2018-08-30] MEDS: risperiDONE ORAL 1 MG/ML 30ml BOTTLE. SL SCH (08:39)
[2018-08-30 15:22] VITALS: BP 155/94
--- NOTE | 2018-08-30 17:17 | PN ---
DATE: 08/28/2018 PSYCHIATRIC PROGRESS NOTE This late entry 08/28/2018 covers elements not covered in my initial note. SUBJECTIVE: I met with the patient in the evening. The patient slept 7-1/4 hours previous night. He has been paranoid, delusional, suspicious, withdrawn and depressed. He has been trying to cheek his medications, telling nursing staff "I can't take my medications." We will change to Risperdal 0.5 mg daily to liquid 1 mg daily. REVIEW OF SYSTEMS: Ambulation impaired. No CV, , pulmonary, eye system symptoms on review. Reliability varies. MENTAL STATUS EXAM: Oriented to himself and situation. Speech is low in rate and rhythm, low in volume, coherent, abstraction fair, computation impaired, language function intact, attention span short. Mood and affect remains depressed, withdrawn and paranoid. LABORATORY DATA: Reviewed. IMPRESSION: Unchanged from initial note. PLAN: No change from initial note and increase the Risperdal as above. MAN Kayce COELHO MD DR: MIRIAM/neville JOB#: [id number] / [id number]
[2018-08-30] MEDS: LORazepam 0.5 MG TABLET PO PRN (19:46)
--- NOTE | 2018-08-30 22:43 | PDOC ---
Exam Note: João Note: Please also refer to the separate dictated note~for this date of service dictated separately.~Patient seen individually. Discussed the patient with Nursing staff reviewed the chart.~Reviewed interim history and current functioning. Reviewed vital signs,~Labs/ Radiology~and current medications noted below. Continue current treatment with the changes noted in the dictated addendum note Assessment: Vital Signs/I&O: Vital Signs Date Time Temp Pulse Resp B/P (MAP) Pulse Ox O2 Delivery O2 Flow Rate FiO2 08/30/18 15:22 98.5 78 20 155/94 (114) 96 08/25/18 06:01 Room Air I & O 08/29/18 08/29/18 08/30/18 15:00 23:00 07:00 Intake Total 720 ml 360 ml Balance 720 ml 360 ml Current Medications: I have reviewed the current psychotropics carefully including drug interactions. Risk benefit ratio favors no change other than as noted in my dictated progress note. Diagnosis: Problems: (1) Anxiety disorder (2) Major depressive disorder, recurrent episode (3) Impulse control disorder (4) Psychosis, atypical (5) Psychotic depression TIERRA COELHO MD Aug 30, 2018 22:43
--- NOTE | 2018-08-31 00:20 | PN ---
DATE: 08/29/2018 PSYCHIATRIC PROGRESS NOTE This is a late entry 08/29, covers elements are not covered in my initial note. SUBJECTIVE: I met with the patient in the evening of 08/29/ at some length in his room. The patient slept 7-1/2 hours previous night. He refused his medications in the morning, later took his Risperdal, refused Cymbalta. He is convinced the nursing staff has implanted a chip in his head after they took his temperature by the frontotemporal scan thermometer. He tried to pocket his medications previous night, remains psychotic per nursing report. REVIEW OF SYSTEMS: Hard of hearing. Impaired ambulation. No CV, , pulmonary, eye system symptoms on review. MENTAL STATUS EXAM: Oriented to himself and situation. Speech has some latency, coherent, often responses monosyllabic. Abstraction fair, computation impaired, language function intact, attention span short. Mood and affect remain somewhat depressed, withdrawn, anxious and paranoid. LABORATORY DATA: Reviewed. IMPRESSION: Unchanged from initial note. Major depressive disorder with psychotic features; anxiety disorder, unspecified; mild cognitive impairment. PLAN: Continue psychotropics from initial note including Cymbalta and Risperdal, which was increased and the Zyprexa p.r.n. and Ativan p.r.n. TIERRA COELHO MD DR: MIRIAM/neville JOB#: [id number] / [id number]
[2018-08-31 05:42] VITALS: BP 124/81
[2018-08-31] MEDS: DULoxetine HCL 60 MG CAPSULE.DR PO SCH (07:52)
[2018-08-31] MEDS: risperiDONE ORAL 1 MG/ML 30ml BOTTLE. SL SCH (07:54)
[2018-08-31] MEDS: LORazepam 0.5 MG TABLET PO PRN (12:34)
[2018-08-31 15:44] VITALS: BP 144/89
--- NOTE | 2018-08-31 22:52 | PDOC ---
Exam Note: João Note: Please also refer to the separate dictated note~for this date of service dictated separately.~Patient seen individually. Discussed the patient with Nursing staff reviewed the chart.~Reviewed interim history and current functioning. Reviewed vital signs,~Labs/ Radiology~and current medications noted below. Continue current treatment with the changes noted in the dictated addendum note Assessment: Vital Signs/I&O: Vital Signs Date Time Temp Pulse Resp B/P (MAP) Pulse Ox O2 Delivery O2 Flow Rate FiO2 08/31/18 15:44 98.0 77 16 144/89 (107) 96 08/31/18 05:42 Room Air I & O 08/30/18 08/30/18 08/31/18 14:59 22:59 06:59 Intake Total 480 ml 120 ml 120 ml Balance 480 ml 120 ml 120 ml Current Medications: I have reviewed the current psychotropics carefully including drug interactions. Risk benefit ratio favors no change other than as noted in my dictated progress note. Diagnosis: Problems: (1) Anxiety disorder (2) Major depressive disorder, recurrent episode (3) Impulse control disorder (4) Psychosis, atypical (5) Psychotic depression TIERRA COELHO MD Aug 31, 2018 22:52
[2018-09-01 05:46] VITALS: BP 168/92
[2018-09-01] MEDS: LORazepam 0.5 MG TABLET PO PRN (07:54)
[2018-09-01] MEDS: risperiDONE ORAL 1 MG/ML 30ml BOTTLE. SL SCH (07:55)
[2018-09-01] MEDS: DULoxetine HCL 60 MG CAPSULE.DR PO SCH (07:55)
[2018-09-01 15:30] VITALS: BP 135/93
--- NOTE | 2018-09-01 21:59 | PN ---
DATE: 08/30/2018 PSYCHIATRIC PROGRESS NOTE This late entry 08/30/2018 covers elements not covered in my initial note. SUBJECTIVE: I met with the patient in the evening. The patient slept 7 hours previous night, is compliant with his medications, but remains somewhat paranoid, withdrawn. REVIEW OF SYSTEMS: Hard of hearing. No CV, , pulmonary, eye system symptoms on review. Gait is somewhat unsteady. MENTAL STATUS EXAM: Oriented to himself and situation. Speech has moderate latency, often responses monosyllabic. Abstraction fair, computation impaired, language function intact, attention span short. Mood and affect somewhat withdrawn. LABORATORY DATA: Reviewed. IMPRESSION: Unchanged from initial note. PLAN: No change from initial note. MAN Kayce COELHO MD DR: MIRIAM/neville JOB#: [id number] / [id number]
--- NOTE | 2018-09-01 22:18 | PDOC ---
Exam Note: João Note: Please also refer to the separate dictated note~for this date of service dictated separately.~Patient seen individually. Discussed the patient with Nursing staff reviewed the chart.~Reviewed interim history and current functioning. Reviewed vital signs,~Labs/ Radiology~and current medications noted below. Continue current treatment with the changes noted in the dictated addendum note Assessment: Vital Signs/I&O: Vital Signs Date Time Temp Pulse Resp B/P (MAP) Pulse Ox O2 Delivery O2 Flow Rate FiO2 09/01/18 15:30 97.7 100 15 135/93 (107) 95 08/31/18 05:42 Room Air I & O 08/31/18 08/31/18 09/01/18 15:00 23:00 07:00 Intake Total 840 ml 240 ml 120 ml Balance 840 ml 240 ml 120 ml Current Medications: I have reviewed the current psychotropics carefully including drug interactions. Risk benefit ratio favors no change other than as noted in my dictated progress note. Diagnosis: Problems: (1) Anxiety disorder (2) Major depressive disorder, recurrent episode (3) Impulse control disorder (4) Psychosis, atypical (5) Psychotic depression TIERRA COELHO MD Sep 01, 2018 22:18
[2018-09-02 06:06] VITALS: BP 149/99
[2018-09-02] MEDS: CHOLECALCIFEROL (VITAMIN D3) 50,000 UNIT CAPSULE PO SCH (07:41)
[2018-09-02] MEDS: DULoxetine HCL 60 MG CAPSULE.DR PO SCH (07:41)
[2018-09-02] MEDS: risperiDONE ORAL 1 MG/ML 30ml BOTTLE. SL SCH (07:42)
[2018-09-02 16:05] VITALS: BP 149/92
--- NOTE | 2018-09-02 22:35 | PDOC ---
Exam Note: João Note: Please also refer to the separate dictated note~for this date of service dictated separately.~Patient seen individually. Discussed the patient with Nursing staff reviewed the chart.~Reviewed interim history and current functioning. Reviewed vital signs,~Labs/ Radiology~and current medications noted below. Continue current treatment with the changes noted in the dictated addendum note Assessment: Vital Signs/I&O: Vital Signs Date Time Temp Pulse Resp B/P (MAP) Pulse Ox O2 Delivery O2 Flow Rate FiO2 09/02/18 16:05 98.0 85 16 149/92 (111) 95 08/31/18 05:42 Room Air I & O 09/01/18 09/01/18 09/02/18 14:59 22:59 06:59 Intake Total 840 ml 240 ml 240 ml Balance 840 ml 240 ml 240 ml Current Medications: Meds: Current Medications Medications (Trade) Dose Ordered Sig/Radhames Route PRN Reason Start Time Stop Time Status Last Admin Dose Admin Risperidone (RisperDAL) 1.125 mg DAILY SL 09/02/18 09:00 09/02/18 07:42 I have reviewed the current psychotropics carefully including drug interactions. Risk benefit ratio favors no change other than as noted in my dictated progress note. Diagnosis: Problems: (1) Anxiety disorder (2) Major depressive disorder, recurrent episode (3) Impulse control disorder (4) Psychosis, atypical (5) Psychotic depression TIERRA COELHO MD Sep 02, 2018 22:35
--- NOTE | 2018-09-03 00:55 | PN ---
DATE: 09/01/2018 PSYCHIATRIC PROGRESS NOTE This is a late entry 09/01/2018, covers elements not covered in my initial note. SUBJECTIVE: I met with the patient in the evening. The patient slept 3-3/4 hours previous night. He remains somewhat delusional about chip being implanted in his forehead from the surface thermometer and I processed this with him again. He remains somewhat depressed, withdrawn. REVIEW OF SYSTEMS: No CV, , pulmonary, eye system symptoms on review. He is hard of hearing. MENTAL STATUS EXAM: Oriented to himself and situation. Speech has some latency, coherent. Abstraction fair, computation impaired, language function intact, attention span short. Mood and affect still somewhat dysphoric, withdrawn. LABORATORY DATA: Reviewed. IMPRESSION: Unchanged from initial note. PLAN: No change from initial note, but increase the Risperdal from 1 mg daily to 1.25 mg, also concentrate daily. MAN Kayce COELHO MD DR: MIRIAM/neville JOB#: [id number] / [id number]
--- NOTE | 2018-09-03 03:42 | PN ---
DATE: 08/31/2018 PSYCHIATRIC PROGRESS NOTE This late entry 08/31/2018 covers elements not covered in my initial note. SUBJECTIVE: I met with the patient in the evening at length in his room. He slept 6-1/2 hours previous night, refused his medications. During the day, still delusional, believed there is a chip implanted on him when the staff took his frontotemporal scan temperature. I addressed this with him. REVIEW OF SYSTEMS: Hard of hearing. No CV, , pulmonary, or eye system symptoms on review. MENTAL STATUS EXAM: Oriented to himself and situation. Speech has some latency, coherent, low in volume. Abstraction fair, computation impaired, language function intact. Mood and affect remain somewhat depressed, withdrawn, paranoid. LABORATORY DATA: Reviewed. IMPRESSION: Unchanged. No suicidal ideation. PLAN: No change from initial note. May need to increase Risperdal if delusions persist. MAN Kayce COELHO MD DR: MIRIAM/neville JOB#: [id number] / [id number]
[2018-09-03 05:56] VITALS: BP 131/77
[2018-09-03] MEDS: DULoxetine HCL 30 MG CAPSULE.DR PO SCH (07:49)
[2018-09-03] MEDS: risperiDONE ORAL 1 MG/ML 30ml BOTTLE. SL SCH (07:49)
[2018-09-03] MEDS: LORazepam 0.5 MG TABLET PO PRN (11:10)
[2018-09-03] MEDS: ACETAMINOPHEN 325 MG TABLET PO PRN ×2 (11:11→20:43)
--- NOTE | 2018-09-03 13:53 | PN ---
DATE: 09/02/2018 PSYCHIATRIC PROGRESS NOTE This late entry 09/02 covers elements not covered in my initial note. SUBJECTIVE: I met with the patient in the evening. The patient slept 7-1/2 hours previous night. He is compliant with his medications hidden in food. He is somewhat paranoid, suspicious, took Risperdal in his drink, Cymbalta at lunchtime. Subjectively, he states he feels a little better and is tolerating the increased Cymbalta 90 mg a day. REVIEW OF SYSTEMS: Hard of hearing and he ambulates somewhat bent forward. No CV, , pulmonary, eye, ENT system symptoms on review. MENTAL STATUS EXAM: Oriented to himself and situation. Speech has moderate latency, often responses monosyllabic. Abstraction fair. Computation impaired. Language function intact. Attention span short. Mood and affect showing improvement, but still somewhat dysphoric. LABORATORY DATA: Reviewed. IMPRESSION: Major depressive disorder with psychotic features in partial remission, mild cognitive impairment. Rest unchanged. PLAN: Increase Cymbalta from 60 mg a day to 90 mg a day. Maintain Risperdal concentrate, which was increased to 1.25 mg daily. Continue Zyprexa p.r.n. Rest unchanged for now. TIERRA COELHO MD DR: MIRIAM/neville JOB#: [id number] / [id number]
[2018-09-03 15:46] VITALS: BP 162/99
[2018-09-03 21:37] LABS: BASO % 1 % (0-3); EOS # 0.3 x10^3/uL (0.0-0.7); EOS % 5 % (0-3); HEMATOCRIT 44.6 % (39.0-53.0); HEMOGLOBIN 15.2 g/dL (13.0-17.5); LYMPH # 1.1 x10^3/uL (1.0-4.8); LYMPH % 19 % (24-48); MEAN CORPUSCULAR HEMOGLOBIN 32 pg (25-35); MEAN CORPUSCULAR HGB CONC 34 g/dL (31-37); MEAN CORPUSCULAR VOLUME 93 fL (79-100); MONO # 0.7 x10^3/uL (0.0-1.1); MONO % 12 % (0-9); NEUT # 3.7 x10^3uL (1.8-7.7); NEUT % 63 % (31-73); PLATELET COUNT 284 x10^3/uL (140-400); RED BLOOD COUNT 4.77 x10^6/uL (4.30-5.70); RED CELL DISTRIBUTION WIDTH 13.5 % (11.5-14.5); WHITE BLOOD COUNT 5.9 x10^3/uL (4.0-11.0)
[2018-09-03 21:52] LABS: ALBUMIN 3.6 g/dL (3.4-5.0); ALBUMIN/GLOBULIN RATIO 0.9 (1.0-1.7); CALCIUM 9.2 mg/dL (8.5-10.1); CREATININE 0.8 mg/dL (0.7-1.3); TOTAL BILIRUBIN 0.3 mg/dL (0.2-1.0); TOTAL PROTEIN 7.5 g/dL (6.4-8.2)
--- NOTE | 2018-09-03 22:16 | PDOC ---
Exam Note: João Note: Please also refer to the separate dictated note~for this date of service dictated separately.~Patient seen individually. Discussed the patient with Nursing staff reviewed the chart.~Reviewed interim history and current functioning. Reviewed vital signs,~Labs/ Radiology~and current medications noted below. Continue current treatment with the changes noted in the dictated addendum note Assessment: Vital Signs/I&O: Vital Signs Date Time Temp Pulse Resp B/P (MAP) Pulse Ox O2 Delivery O2 Flow Rate FiO2 09/03/18 15:46 97.2 74 18 162/99 (120) 97 08/31/18 05:42 Room Air I & O 09/02/18 09/02/18 09/03/18 14:59 22:59 06:59 Intake Total 480 ml 240 ml 120 ml Balance 480 ml 240 ml 120 ml Labs: Laboratory Tests Test 09/03/18 21:30 White Blood Count 5.9 x10^3/uL (4.0-11.0) Red Blood Count 4.77 x10^6/uL (4.30-5.70) Hemoglobin 15.2 g/dL (13.0-17.5) Hematocrit 44.6 % (39.0-53.0) Mean Corpuscular Volume 93 fL (79-100) Mean Corpuscular Hemoglobin 32 pg (25-35) Mean Corpuscular Hemoglobin Concent 34 g/dL (31-37) Red Cell Distribution Width 13.5 % (11.5-14.5) Platelet Count 284 x10^3/uL (140-400) Neutrophils (%) (Auto) 63 % (31-73) Lymphocytes (%) (Auto) 19 % (24-48) L Monocytes (%) (Auto) 12 % (0-9) H Eosinophils (%) (Auto) 5 % (0-3) H Basophils (%) (Auto) 1 % (0-3) Neutrophils # (Auto) 3.7 x10^3uL (1.8-7.7) Lymphocytes # (Auto) 1.1 x10^3/uL (1.0-4.8) Monocytes # (Auto) 0.7 x10^3/uL (0.0-1.1) Eosinophils # (Auto) 0.3 x10^3/uL (0.0-0.7) Basophils # (Auto) 0.0 x10^3/uL (0.0-0.2) Sodium Level 140 mmol/L (136-145) Potassium Level 4.0 mmol/L (3.5-5.1) Chloride Level 102 mmol/L (98-107) Carbon Dioxide Level 28 mmol/L (21-32) Anion Gap 10 (6-14) Blood Urea Nitrogen 14 mg/dL (8-26) Creatinine 0.8 mg/dL (0.7-1.3) Estimated GFR (Cockcroft-Gault) 95.0 BUN/Creatinine Ratio 18 (6-20) Glucose Level 99 mg/dL (70-99) Calcium Level 9.2 mg/dL (8.5-10.1) Total Bilirubin 0.3 mg/dL (0.2-1.0) Aspartate Amino Transferase (AST) 15 U/L (15-37) Alanine Aminotransferase (ALT) 23 U/L (16-63) Alkaline Phosphatase 76 U/L (46-116) Troponin I Quantitative < 0.017 ng/mL (0-0.055) Total Protein 7.5 g/dL (6.4-8.2) Albumin 3.6 g/dL (3.4-5.0) Albumin/Globulin Ratio 0.9 (1.0-1.7) L Current Medications: Meds: Current Medications Medications (Trade) Dose Ordered Sig/Radhames Route PRN Reason Start Time Stop Time Status Last Admin Dose Admin Duloxetine HCl (Cymbalta) 90 mg DAILY PO 09/03/18 09:00 09/03/18 07:49 I have reviewed the current psychotropics carefully including drug interactions. Risk benefit ratio favors no change other than as noted in my dictated progress note. Diagnosis: Problems: (1) Anxiety disorder (2) Major depressive disorder, recurrent episode (3) Impulse control disorder (4) Psychosis, atypical (5) Psychotic depression TIERRA COELHO MD Sep 03, 2018 22:16
[2018-09-04 06:05] VITALS: BP 132/86
[2018-09-04] MEDS: risperiDONE ORAL 1 MG/ML 30ml BOTTLE. SL SCH (07:55)
[2018-09-04] MEDS: DULoxetine HCL 30 MG CAPSULE.DR PO SCH (07:55)
[2018-09-04] MEDS: LORazepam 0.5 MG TABLET PO PRN (07:55)
--- NOTE | 2018-09-04 08:00 | RAD ---
CHEST AP ONLY History: Chest pain Comparison: None. Findings: Single view of the chest is submitted. Pericardial cardiac silhouette is borderline enlarged although there may be a component of epicardial fat on the left, limited evaluation left lung base. There is atherosclerotic calcification aortic arch. There is no lobar consolidation, pleural fluid, pneumothorax. Impression: 1. There is no significant pleural fluid or lobar infiltrate, limited evaluation of the left lung base on this exam. Electronically signed by: Nba Retana MD (09/04/2018 7:57 AM) [facility]
[2018-09-04 08:38] VITALS: BP 155/84
[2018-09-04] MEDS: ACETAMINOPHEN 325 MG TABLET PO PRN ×2 (12:51→19:28)
[2018-09-04] MEDS ORDERED: NON FORMULARY ITEM (Albuterol Sulfate (Albuterol Sulfate Conc Neb Soln) 2.5 MG) NEB PRN (15:00)
[2018-09-04] MEDS: IPRATRPIUM/ALBUTEROL 0.5/2.5MG 3 ML NEBU. NEB SCH ×2 (15:32→20:48)
[2018-09-04 16:01] VITALS: BP 164/94
--- NOTE | 2018-09-04 22:10 | PDOC ---
Exam Note: João Note: Please also refer to the separate dictated note~for this date of service dictated separately.~Patient seen individually. Discussed the patient with Nursing staff reviewed the chart.~Reviewed interim history and current functioning. Reviewed vital signs,~Labs/ Radiology~and current medications noted below. Continue current treatment with the changes noted in the dictated addendum note Assessment: Vital Signs/I&O: Vital Signs Date Time Temp Pulse Resp B/P (MAP) Pulse Ox O2 Delivery O2 Flow Rate FiO2 09/04/18 20:48 96 Room Air 09/04/18 16:01 98.4 86 19 164/94 (117) I & O 09/03/18 09/03/18 09/04/18 14:59 22:59 06:59 Intake Total 600 ml 240 ml 120 ml Balance 600 ml 240 ml 120 ml Current Medications: Meds: Current Medications Medications (Trade) Dose Ordered Sig/Radhames Route PRN Reason Start Time Stop Time Status Last Admin Dose Admin Albuterol/ Ipratropium (Duoneb) 3 ml RTQID NEB 09/04/18 16:00 09/04/18 20:48 I have reviewed the current psychotropics carefully including drug interactions. Risk benefit ratio favors no change other than as noted in my dictated progress note. Diagnosis: Problems: (1) Anxiety disorder (2) Major depressive disorder, recurrent episode (3) Impulse control disorder (4) Psychosis, atypical (5) Psychotic depression TIERRA COELHO MD Sep 04, 2018 22:10
[2018-09-05] MEDS: IPRATRPIUM/ALBUTEROL 0.5/2.5MG 3 ML NEBU. NEB SCH ×4 (05:47→20:52)
[2018-09-05 06:06] VITALS: BP 153/83
[2018-09-05] MEDS: ACETAMINOPHEN 325 MG TABLET PO PRN ×3 (06:27→20:06)
[2018-09-05] MEDS: DULoxetine HCL 30 MG CAPSULE.DR PO SCH (08:36)
[2018-09-05] MEDS: PANTOPRAZOLE 40 MG TABLET. PO SCH (08:37)
[2018-09-05] MEDS: METOPROLOL SUCC 24HR ER 50 MG TAB.ER.24H. PO SCH (08:37)
[2018-09-05] MEDS: risperiDONE ORAL 1 MG/ML 30ml BOTTLE. SL SCH (08:38)
[2018-09-05] MEDS ORDERED: TIOTROPIUM BROMIDE 5 MCG IH SCH (09:00)
--- NOTE | 2018-09-05 11:41 | PN ---
DATE: 09/03/2018 This late entry, 09/03/2018, covers elements not covered in my initial note. SUBJECTIVE: I met with the patient in the evening. The patient slept 7-3/4 hours previous night. He remains somewhat sad, withdrawn, but subjectively states he feels "better." He denies suicidal ideation. He did complain of headache. He received Ativan and Tylenol for the headache, Ativan for the anxiety on one occasion earlier in the day. REVIEW OF SYSTEMS: In addition to above, he is hard of hearing, had to talk loudly as I sat next to him to communicate with him. No CV, , pulmonary, eye system symptoms on review. MENTAL STATUS EXAM: Oriented to himself and situation. Speech has some latency, coherent. Abstraction fair. Computation impaired. Language function intact. Attention span short. Mood and affect still depressed, anxious, slightly paranoid, but much improved. LABORATORY DATA: Reviewed. IMPRESSION: Major depressive disorder with psychotic features; anxiety disorder, unspecified; cognitive disorder, unspecified. PLAN: Continue current psychotropics including Cymbalta 90 mg a day, Risperdal 1.25 mg daily along with Zyprexa p.r.n. Adjust further as clinically indicated. TIERRA COELHO MD DR: MIRIAM/neville JOB#: [id number] / [id number]
[2018-09-05 16:34] VITALS: BP 137/83
--- NOTE | 2018-09-05 22:38 | PDOC ---
Exam Note: João Note: Please also refer to the separate dictated note~for this date of service dictated separately.~Patient seen individually. Discussed the patient with Nursing staff reviewed the chart.~Reviewed interim history and current functioning. Reviewed vital signs,~Labs/ Radiology~and current medications noted below. Continue current treatment with the changes noted in the dictated addendum note Assessment: Vital Signs/I&O: Vital Signs Date Time Temp Pulse Resp B/P (MAP) Pulse Ox O2 Delivery O2 Flow Rate FiO2 09/05/18 20:52 92 Room Air 09/05/18 16:34 97.8 62 20 137/83 (101) I & O 09/04/18 09/04/18 09/05/18 15:00 23:00 07:00 Intake Total 280 ml 120 ml 120 ml Balance 280 ml 120 ml 120 ml Current Medications: Meds: Current Medications Medications (Trade) Dose Ordered Sig/Radhames Route PRN Reason Start Time Stop Time Status Last Admin Dose Admin Metoprolol Succinate (Toprol Xl) 50 mg DAILY PO 09/05/18 09:00 09/05/18 08:37 Pantoprazole Sodium (Protonix) 40 mg DAILYAC PO 09/05/18 07:30 09/05/18 08:37 I have reviewed the current psychotropics carefully including drug interactions. Risk benefit ratio favors no change other than as noted in my dictated progress note. Diagnosis: Problems: (1) Anxiety disorder (2) Major depressive disorder, recurrent episode (3) Impulse control disorder (4) Psychosis, atypical (5) Psychotic depression TIERRA COELHO MD Sep 05, 2018 22:38
[2018-09-06] MEDS: IPRATRPIUM/ALBUTEROL 0.5/2.5MG 3 ML NEBU. NEB SCH ×4 (05:09→20:50)
[2018-09-06 05:55] VITALS: BP 142/87
[2018-09-06] MEDS: ALBUTEROL SULFATE 2.5 MG/3 ML NEBU. NEB PRN (08:12)
[2018-09-06] MEDS: PANTOPRAZOLE 40 MG TABLET. PO SCH (11:51)
[2018-09-06] MEDS: risperiDONE ORAL 1 MG/ML 30ml BOTTLE. SL SCH (11:51)
[2018-09-06] MEDS: DULoxetine HCL 30 MG CAPSULE.DR PO SCH (11:52)
[2018-09-06] MEDS: METOPROLOL SUCC 24HR ER 50 MG TAB.ER.24H. PO SCH (11:52)
[2018-09-06 15:44] VITALS: BP 160/87
--- NOTE | 2018-09-06 22:13 | PDOC ---
Exam Note: João Note: Please also refer to the separate dictated note~for this date of service dictated separately.~Patient seen individually. Discussed the patient with Nursing staff reviewed the chart.~Reviewed interim history and current functioning. Reviewed vital signs,~Labs/ Radiology~and current medications noted below. Continue current treatment with the changes noted in the dictated addendum note Assessment: Vital Signs/I&O: Vital Signs Date Time Temp Pulse Resp B/P (MAP) Pulse Ox O2 Delivery O2 Flow Rate FiO2 09/06/18 15:44 97.6 69 18 160/87 (111) 95 Room Air I & O 09/05/18 09/05/18 09/06/18 15:00 23:00 07:00 Intake Total 600 ml 360 ml 420 ml Balance 600 ml 360 ml 420 ml Current Medications: I have reviewed the current psychotropics carefully including drug interactions. Risk benefit ratio favors no change other than as noted in my dictated progress note. Diagnosis: Problems: (1) Anxiety disorder (2) Major depressive disorder, recurrent episode (3) Impulse control disorder (4) Psychosis, atypical (5) Psychotic depression (6) Mild cognitive impairment TIERRA COELHO MD Sep 06, 2018 22:13
--- NOTE | 2018-09-06 22:14 | PN ---
DATE: 09/04/2018 PSYCHIATRIC PROGRESS NOTE This late entry 09/04/2018 covers elements not covered in my initial note. SUBJECTIVE: I met with the patient in the evening. The patient slept 6-1/4 hours previous night. He has been anxious, complains of some somatic symptoms, chest pain. Workup has been negative. Received Tylenol and Ativan, did better. He has had some crying spells talking about the end being near. I addressed this at some length with him and he was better at the end of the visit. REVIEW OF SYSTEMS: Hard of hearing. No CV, , pulmonary, eye system symptoms on review. MENTAL STATUS EXAM: Oriented to himself and situation. Speech has some latency, low in volume, coherent, abstraction fair, computation impaired, language function intact, attention span short. Mood and affect withdrawn. He denies active suicidal ideation. LABORATORY DATA: Reviewed. IMPRESSION: Unchanged from initial note. PLAN: No change from initial note. May consider having psychological testing with Dr. Merritt to assess capacity to make decisions since he lives alone by himself. MAN Kayce COELHO MD DR: MIRIAM/neville JOB#: [id number] / [id number]
--- NOTE | 2018-09-06 22:46 | PN ---
DATE: 09/05/2018 PSYCHIATRIC PROGRESS NOTE This late entry 09/05/2018 covers elements not covered in my initial note. SUBJECTIVE: I met with the patient in the evening and staffed at a treatment team meeting with the entire team in the morning. Appetite 100%, slept 7 hours. At treatment team meeting discussed his diagnosis, medications requested neuropsychological testing with Dr. Merritt to help assess capacity to make decisions for himself since he lives alone. He remains somewhat paranoid, talking about the change in weather, telling him it is the end of time and that the government is in his head. REVIEW OF SYSTEMS: No CV, , pulmonary, eye, ENT system symptoms on review. He is hard of hearing. MENTAL STATUS EXAM: Oriented to himself and situation. Speech moderate latency, coherent, often responses monosyllabic. Abstraction fair, computation impaired, language function intact. Mood and affect withdrawn. LABORATORY DATA: Reviewed. IMPRESSION: Unchanged from initial note. PLAN: No change from initial note. MAN Kayce COELHO MD DR: MIRIAM/neville JOB#: [id number] / [id number]
--- NOTE | 2018-09-07 01:09 | PN ---
DATE: 09/06/2018 PSYCHIATRIC PROGRESS NOTE This note covers elements not covered in my initial note 09/06/2018. SUBJECTIVE: I met with the patient in the evening at some length in his room. Per nursing report, the patient slept 7 hours previous night. He remains somatically preoccupied. He was previously complaining of some cardiovascular symptoms. Chest pain workup was negative. Today, he is complaining of headaches, at other times complains of difficulty breathing. He received aspirin and then said he was better, also received albuterol. Complains of weakness, took a nap in the afternoon. REVIEW OF SYSTEMS: Hard of hearing. No CV, , pulmonary, eye system symptoms on review. MENTAL STATUS EXAM: Oriented to himself and situation. Speech has some latency, coherent. Abstraction fair, computation impaired, language function intact, attention span short. Mood and affect somewhat withdrawn. LABORATORY DATA: Reviewed. IMPRESSION: Unchanged from initial note. PLAN: No change from initial note. TIERRA COELHO MD DR: MIRIAM/neville JOB#: [id number] / [id number]
[2018-09-07] MEDS: IPRATRPIUM/ALBUTEROL 0.5/2.5MG 3 ML NEBU. NEB SCH ×4 (05:32→20:00)
[2018-09-07 06:03] VITALS: BP 117/79
[2018-09-07] MEDS: METOPROLOL SUCC 24HR ER 50 MG TAB.ER.24H. PO SCH (07:51)
[2018-09-07] MEDS: risperiDONE ORAL 1 MG/ML 30ml BOTTLE. SL SCH (07:51)
[2018-09-07] MEDS: DULoxetine HCL 30 MG CAPSULE.DR PO SCH (07:52)
[2018-09-07] MEDS: PANTOPRAZOLE 40 MG TABLET. PO SCH (07:52)
[2018-09-07 15:33] VITALS: BP 142/96
[2018-09-08] MEDS: IPRATRPIUM/ALBUTEROL 0.5/2.5MG 3 ML NEBU. NEB SCH ×4 (05:26→20:26)
[2018-09-08 06:23] VITALS: BP 128/80
[2018-09-08] MEDS: METOPROLOL SUCC 24HR ER 50 MG TAB.ER.24H. PO SCH (09:07)
[2018-09-08] MEDS: PANTOPRAZOLE 40 MG TABLET. PO SCH (09:07)
[2018-09-08] MEDS: risperiDONE ORAL 1 MG/ML 30ml BOTTLE. SL SCH (09:07)
[2018-09-08] MEDS: DULoxetine HCL 30 MG CAPSULE.DR PO SCH (09:07)
--- NOTE | 2018-09-08 15:17 | PN ---
DATE: 09/07/2018 SUBJECTIVE: The patient was seen today, met with the staff, chart reviewed. Staff reports behavior problems, noncompliant with the treatment, having multiple physical complaints. OBSERVATION: VITAL SIGNS: Temperature 98, respirations 20, blood pressure 117/79, pulse 60, O2 sat 95%. Slept about 8 hours last night. CURRENT MEDICATIONS: Include Cymbalta 90 mg daily, Risperdal ____ mg daily, olanzapine 2.5 mg q. 2 hours p.r.n. The patient's labs reviewed, which are all within normal range. The patient has multiple physical complaints. No recent falls. The patient frequently complains of headache, difficulty breathing. ASSESSMENT: Major depressive disorder, recurrent; anxiety disorder, unspecified with . MARIUSZ TREVIZO MD DR: JASMIN/neville JOB#: [id number] / [id number]
[2018-09-08 17:03] VITALS: BP 122/79
[2018-09-08] MEDS: ACETAMINOPHEN 325 MG TABLET PO PRN (20:00)
[2018-09-09] MEDS: IPRATRPIUM/ALBUTEROL 0.5/2.5MG 3 ML NEBU. NEB SCH ×4 (05:30→20:51)
[2018-09-09 06:17] VITALS: BP 144/86
[2018-09-09] MEDS: PANTOPRAZOLE 40 MG TABLET. PO SCH (07:51)
[2018-09-09] MEDS: CHOLECALCIFEROL (VITAMIN D3) 50,000 UNIT CAPSULE PO SCH (07:51)
[2018-09-09] MEDS: METOPROLOL SUCC 24HR ER 50 MG TAB.ER.24H. PO SCH (07:51)
[2018-09-09] MEDS: DULoxetine HCL 30 MG CAPSULE.DR PO SCH (07:51)
[2018-09-09] MEDS: risperiDONE ORAL 1 MG/ML 30ml BOTTLE. SL SCH (07:53)
[2018-09-09] MEDS: ACETAMINOPHEN 325 MG TABLET PO PRN (12:46)
--- NOTE | 2018-09-09 15:07 | PN ---
DATE: 09/08/2018 SUBJECTIVE: The patient was seen today, met with the staff, chart reviewed. The patient continues to be anxious, confused at times, agitated easily, also feeling suspicious and paranoid and also disorganized thinking. The patient continues to complain of feeling depressed. Staff reports that he is filling his medications and the patient thinks he is taking too many medications. The patient also has trust issues. The patient has problems making decisions with regard to his treatment. OBSERVATION: VITAL SIGNS: Temperature 98.1, blood pressure 128/80, pulse 72, respirations 22, O2 sat 94%. Slept about 8 hours last night. The patient's appetite is good. MEDICATIONS: The patient's current medications include Cymbalta 90 mg daily, Risperdal 1.125 mg daily, lorazepam 0.25 mg q. 2 hours p.r.n., also olanzapine 2.5 mg q. 2 hours p.r.n. The patient is not having any side effects. The patient continues to have multiple physical complaints. No recent fall. The patient also frequently complains of headache. ASSESSMENT: 1. Major depressive disorder, recurrent. 2. Anxiety disorder, unspecified. PLAN: To continue with the treatment. LENGTH OF STAY: Three to five days. MARIUSZ TREVIZO MD DR: JASMIN/neville JOB#: [id number] / [id number] KIRSTIN
[2018-09-09 16:31] VITALS: BP 101/68
[2018-09-09] MEDS: DIVALPROEX SODIUM 250 MG TABLET.DR. PO SCH (20:27)
--- NOTE | 2018-09-10 04:20 | PN ---
DATE: 09/09/2018 SUBJECTIVE: The patient was seen today, met with the staff, chart reviewed. The patient continues to complain of headaches, one-sided, mostly temporal area and he thinks he has migraine headaches, though he has never been diagnosed. The patient states also not sleeping well, feeling tired, also feeling depressed. The patient is also complaining that he may be taking too much medications. The patient also has interpersonal relationship problems, somewhat guarded, tends to isolate himself, also lacking insight to his problems. OBSERVATION: VITAL SIGNS: Temperature 97.4, blood pressure 144/86, pulse 60, respirations 20, O2 sat 95%. Slept about 6-1/2 hours last night. His appetite is fair. MEDICATIONS: The patient's current medications include Cymbalta 90 mg daily, Risperdal 1.125 mg daily, lorazepam 0.25 mg q.2 hours p.r.n., olanzapine 2.5 mg q.2 hours p.r.n. The patient is not having any side effects. REVIEW OF SYSTEMS: The patient does not have any physical complaints except for the chronic headaches and no history of falls. ASSESSMENT: 1. Major depressive disorder, recurrent. 2. Anxiety disorder, unspecified. PLAN: To continue with the treatment. The patient will be started on Depakote 250 mg at night for his headaches. MARIUSZ TREVIZO MD DR: JASMIN/neville JOB#: [id number] / [id number]
[2018-09-10] MEDS: IPRATRPIUM/ALBUTEROL 0.5/2.5MG 3 ML NEBU. NEB SCH ×4 (05:37→20:17)
[2018-09-10 06:08] VITALS: BP 149/88
[2018-09-10] MEDS: PANTOPRAZOLE 40 MG TABLET. PO SCH (07:25)
[2018-09-10] MEDS: METOPROLOL SUCC 24HR ER 50 MG TAB.ER.24H. PO SCH (07:25)
[2018-09-10] MEDS: risperiDONE ORAL 1 MG/ML 30ml BOTTLE. SL SCH (07:25)
[2018-09-10] MEDS: DULoxetine HCL 30 MG CAPSULE.DR PO SCH (07:25)
[2018-09-10 16:16] VITALS: BP 144/76
[2018-09-10] MEDS: DIVALPROEX SODIUM 250 MG TABLET.DR. PO SCH (20:07)
--- NOTE | 2018-09-10 22:54 | PN ---
DATE: 09/10/2018 SUBJECTIVE: The patient was seen today, met with the staff, chart reviewed. The patient is still having problems with hearing. The patient states he felt better after starting on Depakote 250 mg at night. The patient also states some improvement with his headaches. The patient is still concrete with his thinking. OBSERVATION: VITAL SIGNS: Stable. Complaining of not sleeping well. His appetite has improved. CURRENT MEDICATIONS: include Cymbalta 90 mg daily, Risperdal 0.125 mg daily, lorazepam 0.25 mg q. 2 hours p.r.n. and olanzapine 2.5 mg q. 2 hours p.r.n. The patient denies of any other side effects. ASSESSMENT: 1. Major depressive disorder, recurrent. 2. Anxiety disorder, unspecified. PLAN: To continue with the treatment. LENGTH OF STAY: 3-5 days. MARIUSZ TREVIZO MD DR: JASMIN/neville JOB#: [id number] / [id number]
[2018-09-11] MEDS: ALBUTEROL SULFATE 2.5 MG/3 ML NEBU. NEB PRN (04:27)
[2018-09-11 06:18] VITALS: BP 160/86
[2018-09-11] MEDS: IPRATRPIUM/ALBUTEROL 0.5/2.5MG 3 ML NEBU. NEB SCH ×4 (06:42→20:46)
[2018-09-11] MEDS: METOPROLOL SUCC 24HR ER 50 MG TAB.ER.24H. PO SCH (08:56)
[2018-09-11] MEDS: PANTOPRAZOLE 40 MG TABLET. PO SCH (08:56)
[2018-09-11] MEDS: DULoxetine HCL 30 MG CAPSULE.DR PO SCH (08:57)
[2018-09-11] MEDS: risperiDONE ORAL 1 MG/ML 30ml BOTTLE. SL SCH (08:57)
[2018-09-11] MEDS: MAGNESIUM HYDROXIDE 2,400 MG/30 ML ORAL.SUSP. PO PRN (12:36)
[2018-09-11] MEDS: ACETAMINOPHEN 325 MG TABLET PO PRN (12:36)
[2018-09-11 13:51] VITALS: BP 164/97
[2018-09-11 15:51] VITALS: BP 169/88
[2018-09-11] MEDS: DIVALPROEX SODIUM 250 MG TABLET.DR. PO SCH (19:49)
--- NOTE | 2018-09-11 23:25 | PN ---
DATE: 09/11/2018 SUBJECTIVE: The patient was seen today, met with the staff, chart reviewed. The patient continued to be withdrawn, still irritable and serrano at times. Continues to complain of headaches and also states he is not sleeping well. The patient has considerable difficulty with his cognition, also is not able to show much affect. The patient also tends to get irritable, serrano at times, and also concrete with his thinking. MEDICATIONS: The patient's current medications include Cymbalta 90 mg daily, Risperdal 0.125 mg daily, lorazepam 0.25 mg q. 2 hours p.r.n., also olanzapine 2.5 mg q. 2 hours p.r.n. The patient was also started on Depakote yesterday 250 mg and that will be increased to 375 mg at night. The patient is not having any side effects. ASSESSMENT: 1. Major depressive disorder, recurrent. 2. Anxiety disorder, unspecified. 3. Cognitive disorder, mild. PLAN: To continue with the treatment. LENGTH OF STAY: 3-5 days. MARIUSZ TREVIZO MD DR: JASMIN/neville JOB#: [id number] / [id number]
[2018-09-12 06:11] VITALS: BP 136/84
[2018-09-12] MEDS: IPRATRPIUM/ALBUTEROL 0.5/2.5MG 3 ML NEBU. NEB SCH ×4 (06:15→20:03)
[2018-09-12 06:34] LABS: BASO % 1 % (0-3); EOS # 0.3 x10^3/uL (0.0-0.7); EOS % 6 % (0-3); HEMATOCRIT 42.8 % (39.0-53.0); HEMOGLOBIN 14.7 g/dL (13.0-17.5); LYMPH % 23 % (24-48); MEAN CORPUSCULAR HEMOGLOBIN 32 pg (25-35); MEAN CORPUSCULAR HGB CONC 34 g/dL (31-37); MEAN CORPUSCULAR VOLUME 92 fL (79-100); MONO # 0.5 x10^3/uL (0.0-1.1); MONO % 12 % (0-9); NEUT # 2.6 x10^3uL (1.8-7.7); NEUT % 58 % (31-73); PLATELET COUNT 225 x10^3/uL (140-400); RED BLOOD COUNT 4.66 x10^6/uL (4.30-5.70); RED CELL DISTRIBUTION WIDTH 13.1 % (11.5-14.5); WHITE BLOOD COUNT 4.4 x10^3/uL (4.0-11.0)
[2018-09-12 06:42] LABS: ALBUMIN 3.3 g/dL (3.4-5.0); ALBUMIN/GLOBULIN RATIO 0.9 (1.0-1.7); ALK PHOS 67 U/L (46-116); ALT (SGPT) 29 U/L (16-63); ANION GAP 8 (6-14); AST (SGOT) 16 U/L (15-37); BLOOD UREA NITROGEN 16 mg/dL (8-26); BUN/CREATININE RATIO 23 (6-20); CALCIUM 8.8 mg/dL (8.5-10.1); CARBON DIOXIDE 29 mmol/L (21-32); CHLORIDE 104 mmol/L (98-107); CREATININE 0.7 mg/dL (0.7-1.3); GFR 110.9; GLUCOSE 88 mg/dL (70-99); POTASSIUM 4.3 mmol/L (3.5-5.1); SODIUM 141 mmol/L (136-145); TOTAL BILIRUBIN 0.5 mg/dL (0.2-1.0); TOTAL PROTEIN 6.8 g/dL (6.4-8.2)
[2018-09-12 06:43] LABS: VAL ACID 30 mcg/mL (50-100)
[2018-09-12] MEDS: DULoxetine HCL 30 MG CAPSULE.DR PO SCH (09:29)
[2018-09-12] MEDS: METOPROLOL SUCC 24HR ER 50 MG TAB.ER.24H. PO SCH (09:29)
[2018-09-12] MEDS: PANTOPRAZOLE 40 MG TABLET. PO SCH (09:29)
[2018-09-12] MEDS: risperiDONE ORAL 1 MG/ML 30ml BOTTLE. SL SCH (09:31)
[2018-09-12] MEDS: ACETAMINOPHEN 325 MG TABLET PO PRN (16:22)
[2018-09-12] MEDS: DIVALPROEX SODIUM 250 MG TABLET.DR. PO SCH (19:40)
--- NOTE | 2018-09-13 00:19 | PN ---
DATE: 09/12/2018 SUBJECTIVE: The patient was seen today, met with the staff, chart reviewed. The patient continues to have problems with high level of anxiety, irritability, multiple somatic complaints, and also withdrawn. The patient also has difficulty with concentration and thinking. The patient is also having difficulty verbalizing his feelings. OBSERVATION: VITAL SIGNS: Temperature 97.5, blood pressure 136/84, pulse 66, respirations 20, O2 sat 94%. Slept about 7 hours last night. The patient's appetite is fair. The patient's lab reviewed. MEDICATIONS: The patient's current medications include Depakote 375 mg at night, Cymbalta 90 mg daily, Risperdal 0.125 mg daily, lorazepam 0.25 mg q. 2 hours p.r.n. and olanzapine 2.5 mg q. 2 hours p.r.n. The patient is not having any side effects to the medications. ASSESSMENT: 1. Major depressive disorder, recurrent. 2. Anxiety disorder, unspecified. 3. Cognitive disorder, mild. PLAN: To continue with the treatment. LENGTH OF STAY: 3-5 days. MARIUSZ TREVIZO MD DR: JASMIN/neville JOB#: [id number] / [id number]
[2018-09-13] MEDS: ALBUTEROL SULFATE 2.5 MG/3 ML NEBU. NEB PRN (01:31)
[2018-09-13] MEDS: ACETAMINOPHEN 325 MG TABLET PO PRN ×2 (01:41→16:40)
[2018-09-13] MEDS: IPRATRPIUM/ALBUTEROL 0.5/2.5MG 3 ML NEBU. NEB SCH ×4 (05:44→20:26)
[2018-09-13 06:17] VITALS: BP 160/82
[2018-09-13] MEDS: METOPROLOL SUCC 24HR ER 50 MG TAB.ER.24H. PO SCH (08:56)
[2018-09-13] MEDS: DULoxetine HCL 30 MG CAPSULE.DR PO SCH (08:56)
[2018-09-13] MEDS: PANTOPRAZOLE 40 MG TABLET. PO SCH (08:56)
[2018-09-13] MEDS: risperiDONE ORAL 1 MG/ML 30ml BOTTLE. SL SCH (08:59)
[2018-09-13 15:56] VITALS: BP 124/86
[2018-09-13] MEDS: DIVALPROEX 125 MG CAP.SPRINK PO SCH (19:49)
--- NOTE | 2018-09-13 23:00 | PN ---
DATE: 09/13/2018 SUBJECTIVE: The patient was seen today, met with the staff, chart reviewed. The patient's behavior remains the same, still withdrawn and isolative. The patient also resistive with care, refusing the medications. Also, has some paranoia, questioning why he has to take the medications. The patient continues to focus on headaches, multiple physical complaints. He is also concrete with his thinking. OBSERVATION: VITAL SIGNS: Temperature 97.6, blood pressure 160/82, pulse 80, respirations 20, O2 sat 95%. Slept about 7 hours last night. CURRENT MEDICATIONS: The patient's current medications include Depakote 375 mg at night, Cymbalta 90 mg daily, Risperdal 1.125 mg daily and olanzapine 2.5 mg q.2 hours p.r.n. ASSESSMENT: 1. Major depressive disorder, recurrent. 2. Anxiety disorder, unspecified. 3. Cognitive disorder. PLAN: To continue with the treatment. LENGTH OF STAY: 3-5 days MARIUSZ TREVIZO MD DR: JASMIN/neville JOB#: [id number] / [id number]
[2018-09-14] MEDS: IPRATRPIUM/ALBUTEROL 0.5/2.5MG 3 ML NEBU. NEB SCH ×5 (04:04→20:35)
[2018-09-14 06:19] VITALS: BP 177/94
[2018-09-14] MEDS: DULoxetine HCL 30 MG CAPSULE.DR PO SCH (08:37)
[2018-09-14] MEDS: METOPROLOL SUCC 24HR ER 50 MG TAB.ER.24H. PO SCH (08:38)
[2018-09-14] MEDS: PANTOPRAZOLE 40 MG TABLET. PO SCH (08:38)
[2018-09-14] MEDS: risperiDONE ORAL 1 MG/ML 30ml BOTTLE. SL SCH (08:39)
[2018-09-14] MEDS: LORazepam 0.5 MG TABLET PO PRN (11:27)
[2018-09-14 15:47] VITALS: BP 131/90
[2018-09-14] MEDS: DIVALPROEX 125 MG CAP.SPRINK PO SCH (19:40)
--- NOTE | 2018-09-14 22:02 | PDOC ---
Exam Note: João Note: Please also refer to the separate dictated note~for this date of service dictated separately.~Patient seen individually. Discussed the patient with Nursing staff reviewed the chart.~Reviewed interim history and current functioning. Reviewed vital signs,~Labs/ Radiology~and current medications noted below. Continue current treatment with the changes noted in the dictated addendum note Assessment: Vital Signs/I&O: Vital Signs Date Time Temp Pulse Resp B/P (MAP) Pulse Ox O2 Delivery O2 Flow Rate FiO2 09/14/18 20:36 96 Room Air 09/14/18 15:47 97.4 76 18 131/90 (104) I & O 09/13/18 09/13/18 09/14/18 15:00 23:00 07:00 Intake Total 720 ml 240 ml 120 ml Balance 720 ml 240 ml 120 ml Current Medications: I have reviewed the current psychotropics carefully including drug interactions. Risk benefit ratio favors no change other than as noted in my dictated progress note. Diagnosis: Problems: (1) Anxiety disorder (2) Major depressive disorder, recurrent episode (3) Impulse control disorder (4) Psychosis, atypical (5) Psychotic depression (6) Mild cognitive impairment TIERRA COELHO MD Sep 14, 2018 22:02
[2018-09-15] MEDS: ALBUTEROL SULFATE 2.5 MG/3 ML NEBU. NEB PRN ×2 (03:02→19:08)
[2018-09-15] MEDS: IPRATRPIUM/ALBUTEROL 0.5/2.5MG 3 ML NEBU. NEB SCH ×4 (05:23→20:05)
[2018-09-15 06:19] VITALS: BP 155/83
[2018-09-15] MEDS: METOPROLOL SUCC 24HR ER 50 MG TAB.ER.24H. PO SCH (08:18)
[2018-09-15] MEDS: risperiDONE ORAL 1 MG/ML 30ml BOTTLE. SL SCH (08:19)
[2018-09-15] MEDS: PANTOPRAZOLE 40 MG TABLET. PO SCH (08:19)
[2018-09-15] MEDS: DULoxetine HCL 30 MG CAPSULE.DR PO SCH (08:19)
[2018-09-15 16:50] VITALS: BP 123/75
[2018-09-15] MEDS: LORazepam 0.5 MG TABLET PO PRN (18:33)
[2018-09-15] MEDS: DIVALPROEX 125 MG CAP.SPRINK PO SCH (19:08)
--- NOTE | 2018-09-15 22:43 | PDOC ---
Exam Note: João Note: Please also refer to the separate dictated note~for this date of service dictated separately.~Patient seen individually. Discussed the patient with Nursing staff reviewed the chart.~Reviewed interim history and current functioning. Reviewed vital signs,~Labs/ Radiology~and current medications noted below. Continue current treatment with the changes noted in the dictated addendum note Assessment: Vital Signs/I&O: Vital Signs Date Time Temp Pulse Resp B/P (MAP) Pulse Ox O2 Delivery O2 Flow Rate FiO2 09/15/18 20:06 96 Room Air 09/15/18 16:50 98.2 72 18 123/75 (91) I & O 09/14/18 09/14/18 09/15/18 14:59 22:59 06:59 Intake Total 600 ml 360 ml 240 ml Balance 600 ml 360 ml 240 ml Current Medications: I have reviewed the current psychotropics carefully including drug interactions. Risk benefit ratio favors no change other than as noted in my dictated progress note. Diagnosis: Problems: (1) Anxiety disorder (2) Major depressive disorder, recurrent episode (3) Impulse control disorder (4) Psychosis, atypical (5) Psychotic depression (6) Mild cognitive impairment TIERRA COELHO MD Sep 15, 2018 22:43
[2018-09-16] MEDS: ALBUTEROL SULFATE 2.5 MG/3 ML NEBU. NEB PRN (02:55)
[2018-09-16] MEDS: IPRATRPIUM/ALBUTEROL 0.5/2.5MG 3 ML NEBU. NEB SCH ×3 (05:07→20:00)
[2018-09-16 06:07] VITALS: BP 172/97
[2018-09-16] MEDS: DULoxetine HCL 30 MG CAPSULE.DR PO SCH (07:52)
[2018-09-16] MEDS: METOPROLOL SUCC 24HR ER 50 MG TAB.ER.24H. PO SCH (07:52)
[2018-09-16] MEDS: PANTOPRAZOLE 40 MG TABLET. PO SCH (07:52)
[2018-09-16] MEDS: risperiDONE ORAL 1 MG/ML 30ml BOTTLE. SL SCH (07:54)
[2018-09-16] MEDS: CHOLECALCIFEROL (VITAMIN D3) 50,000 UNIT CAPSULE PO SCH (07:54)
[2018-09-16 16:36] VITALS: BP 147/82
[2018-09-16] MEDS: DIVALPROEX 125 MG CAP.SPRINK PO SCH (19:50)
--- NOTE | 2018-09-16 22:42 | PDOC ---
Exam Note: João Note: Please also refer to the separate dictated note~for this date of service dictated separately.~Patient seen individually. Discussed the patient with Nursing staff reviewed the chart.~Reviewed interim history and current functioning. Reviewed vital signs,~Labs/ Radiology~and current medications noted below. Continue current treatment with the changes noted in the dictated addendum note Assessment: Vital Signs/I&O: Vital Signs Date Time Temp Pulse Resp B/P (MAP) Pulse Ox O2 Delivery O2 Flow Rate FiO2 09/16/18 20:19 95 Room Air 09/16/18 16:36 97.7 68 16 147/82 (103) I & O 09/15/18 09/15/18 09/16/18 14:59 22:59 06:59 Intake Total 480 ml 240 ml 240 ml Balance 480 ml 240 ml 240 ml Current Medications: I have reviewed the current psychotropics carefully including drug interactions. Risk benefit ratio favors no change other than as noted in my dictated progress note. Diagnosis: Problems: (1) Anxiety disorder (2) Major depressive disorder, recurrent episode (3) Impulse control disorder (4) Psychosis, atypical (5) Psychotic depression (6) Mild cognitive impairment TIERRA COELHO MD Sep 16, 2018 22:42
--- NOTE | 2018-09-17 02:35 | PN ---
DATE: 09/15/2018 PSYCHIATRIC PROGRESS NOTE This is a late entry 09/15/2018, covers the elements not covered in my initial note. SUBJECTIVE: I met with the patient in the evening. The patient slept 6-1/2 hours previous night. He has been somewhat withdrawn to his room, anxious at times and when I met with him in the evening, he was wanting a breathing treatment and the nursing staff arranging this. No CV, , eye system symptoms on review. He is hard of hearing, complains of shortness of breath. MENTAL STATUS EXAM: Oriented to himself and situation. Speech has some latency, coherent. Abstraction fair, computation impaired, language function intact, attention span short. Mood and affect somewhat withdrawn. LABORATORY DATA: Reviewed. IMPRESSION: Unchanged from initial note. PLAN: No change from initial note. MAN Kayce COELHO MD DR: MIRIAM/neville JOB#: [id number] / [id number]
[2018-09-17] MEDS: ALBUTEROL SULFATE 2.5 MG/3 ML NEBU. NEB PRN (05:14)
[2018-09-17] MEDS: IPRATRPIUM/ALBUTEROL 0.5/2.5MG 3 ML NEBU. NEB SCH ×4 (05:23→20:00)
[2018-09-17 06:11] VITALS: BP 146/86
[2018-09-17 07:49] LABS: VAL ACID 29 mcg/mL (50-100)
[2018-09-17] MEDS: METOPROLOL SUCC 24HR ER 50 MG TAB.ER.24H. PO SCH (07:52)
[2018-09-17] MEDS: DULoxetine HCL 30 MG CAPSULE.DR PO SCH (07:52)
[2018-09-17] MEDS: PANTOPRAZOLE 40 MG TABLET. PO SCH (07:52)
[2018-09-17] MEDS: risperiDONE ORAL 1 MG/ML 30ml BOTTLE. SL SCH (07:54)
--- NOTE | 2018-09-17 11:38 | PN ---
DATE: 09/14/2018 This late entry 09/14/2018 covers the elements not covered in my initial note. SUBJECTIVE: I met with the patient in the evening. Reviewed information from Dr. Vaughan who covered for me over the past 1 week. Overall, the patient states his mood is better. He states he does not have any racing thoughts, is still somewhat anxious, but complained of dry skin. He is hard of hearing. No CV, , pulmonary, or eye system symptoms on review otherwise. MENTAL STATUS EXAM: Oriented to himself and situation. Speech is coherent, abstraction fair, computation impaired, language function intact, attention span short. Mood and affect still depressed, anxious, but improved. No suicidal ideation. LABORATORY DATA: Reviewed. IMPRESSION: Unchanged from initial note. PLAN: No change from initial note. MAN Kayce COELHO MD DR: MIRIAM/neville JOB#: [id number] / [id number]
[2018-09-17 16:13] VITALS: BP 145/83
[2018-09-17] MEDS: DIVALPROEX 125 MG CAP.SPRINK PO SCH (19:15)
--- NOTE | 2018-09-17 22:39 | PDOC ---
Exam Note: João Note: Please also refer to the separate dictated note~for this date of service dictated separately.~Patient seen individually. Discussed the patient with Nursing staff reviewed the chart.~Reviewed interim history and current functioning. Reviewed vital signs,~Labs/ Radiology~and current medications noted below. Continue current treatment with the changes noted in the dictated addendum note Assessment: Vital Signs/I&O: Vital Signs Date Time Temp Pulse Resp B/P (MAP) Pulse Ox O2 Delivery O2 Flow Rate FiO2 09/17/18 20:31 95 Room Air 09/17/18 16:13 97.8 83 16 145/83 (103) I & O 09/16/18 09/16/18 09/17/18 14:59 22:59 06:59 Intake Total 480 ml 180 ml 240 ml Balance 480 ml 180 ml 240 ml Labs: Laboratory Tests Test 09/17/18 07:03 Valproic Acid Level 29 mcg/mL (50-100) L Valproic Acid Last Dose Date 09/16/18 Valproic Acid Last Dose Time 2100 Current Medications: I have reviewed the current psychotropics carefully including drug interactions. Risk benefit ratio favors no change other than as noted in my dictated progress note. Diagnosis: Problems: (1) Anxiety disorder (2) Major depressive disorder, recurrent episode (3) Impulse control disorder (4) Psychosis, atypical (5) Psychotic depression (6) Mild cognitive impairment TIERRA COELHO MD Sep 17, 2018 22:38
[2018-09-18] MEDS: ALBUTEROL SULFATE 2.5 MG/3 ML NEBU. NEB PRN (02:33)
--- NOTE | 2018-09-18 05:27 | PN ---
DATE: 09/16/2018 PSYCHIATRIC PROGRESS NOTE This is a late entry 09/16/2018 covers elements not covered in my initial note. SUBJECTIVE: I met with the patient in the evening of 09/16/2018. The patient slept 8-1/4 hours previous night. He has been withdrawn, spending much time in his room. Does complain of dry skin. Nursing will defer it to Dr. Norman. REVIEW OF SYSTEMS: Hard of hearing. No CV, , pulmonary, eye system symptoms on review, but integumentary system symptoms as noted above. MENTAL STATUS EXAM: Oriented to himself and situation. Speech has some latency, coherent. Abstraction fair, computation impaired, language function intact, attention span short. Mood and affect, somewhat anxious, dysphoric at times, labile, but improved. LABORATORY DATA: Reviewed. No suicidal ideation. IMPRESSION: Unchanged from initial note. PLAN: No change from initial note. We will check a valproic acid level, adjust Depakote thereafter. MAN Kayce COELHO MD DR: MIRIAM/neville JOB#: [id number] / [id number]
[2018-09-18] MEDS: IPRATRPIUM/ALBUTEROL 0.5/2.5MG 3 ML NEBU. NEB SCH ×4 (05:29→20:43)
[2018-09-18 06:13] VITALS: BP 137/88
[2018-09-18] MEDS: PANTOPRAZOLE 40 MG TABLET. PO SCH (07:36)
[2018-09-18] MEDS: METOPROLOL SUCC 24HR ER 50 MG TAB.ER.24H. PO SCH (07:36)
[2018-09-18] MEDS: DULoxetine HCL 30 MG CAPSULE.DR PO SCH (07:36)
[2018-09-18] MEDS: risperiDONE ORAL 1 MG/ML 30ml BOTTLE. SL SCH (07:38)
[2018-09-18] MEDS: predniSONE 20 MG TABLET PO SCH (07:45)
[2018-09-18 15:36] VITALS: BP 126/86
[2018-09-18] MEDS: DIVALPROEX 125 MG CAP.SPRINK PO SCH (19:54)
--- NOTE | 2018-09-18 23:03 | PDOC ---
Exam Note: João Note: Please also refer to the separate dictated note~for this date of service dictated separately.~Patient seen individually. Discussed the patient with Nursing staff reviewed the chart.~Reviewed interim history and current functioning. Reviewed vital signs,~Labs/ Radiology~and current medications noted below. Continue current treatment with the changes noted in the dictated addendum note Assessment: Vital Signs/I&O: Vital Signs Date Time Temp Pulse Resp B/P (MAP) Pulse Ox O2 Delivery O2 Flow Rate FiO2 09/18/18 20:44 94 Room Air 09/18/18 15:36 78 20 126/86 (99) 09/18/18 06:13 97.9 I & O 09/17/18 09/17/18 09/18/18 15:00 23:00 07:00 Intake Total 600 ml 240 ml Balance 600 ml 240 ml Current Medications: Meds: Current Medications Medications (Trade) Dose Ordered Sig/Rdahames Route PRN Reason Start Time Stop Time Status Last Admin Dose Admin Prednisone (Prednisone) 20 mg DAILY PO 09/18/18 09:00 09/18/18 07:45 I have reviewed the current psychotropics carefully including drug interactions. Risk benefit ratio favors no change other than as noted in my dictated progress note. Diagnosis: Problems: (1) Anxiety disorder (2) Major depressive disorder, recurrent episode (3) Impulse control disorder (4) Psychosis, atypical (5) Psychotic depression (6) Mild cognitive impairment TIERRA COELHO MD Sep 18, 2018 23:02
--- NOTE | 2018-09-19 00:30 | PN ---
DATE: 09/17/2018 PSYCHIATRIC PROGRESS NOTE. This late entry of 09/17/2018 covers the elements not covered in my initial note. I met with the patient on the evening of 09/17/2018. The patient slept 7 hours previous night. He refused his morning liquid Risperdal, took it later. Somewhat anxious, restless. REVIEW OF SYSTEMS: Complains of some dry skin. No CV, , pulmonary, eye, ENT system symptoms on review. MENTAL STATUS EXAM: Oriented to himself and situation. Speech has some latency, coherent, somewhat hard of hearing. Abstraction fair, computation impaired, language function intact, attention span short. Mood and affect somewhat withdrawn, anxious, but improved. No suicidal ideation. LABORATORY DATA: Reviewed. IMPRESSION: Unchanged from initial note. PLAN: No change from initial note. MAN Kayce COELHO MD DR: MIRIAM/neville JOB#: [id number] / [id number]
[2018-09-19] MEDS: ALBUTEROL SULFATE 2.5 MG/3 ML NEBU. NEB PRN (02:45)
[2018-09-19] MEDS: IPRATRPIUM/ALBUTEROL 0.5/2.5MG 3 ML NEBU. NEB SCH ×4 (05:06→20:07)
[2018-09-19 05:57] VITALS: BP 176/98
[2018-09-19 06:57] LABS: BASO # 0.1 x10^3/uL (0.0-0.2); BASO % 1 % (0-3); EOS # 0.2 x10^3/uL (0.0-0.7); EOS % 3 % (0-3); HEMATOCRIT 40.1 % (39.0-53.0); HEMOGLOBIN 13.6 g/dL (13.0-17.5); LYMPH # 1.3 x10^3/uL (1.0-4.8); LYMPH % 21 % (24-48); MEAN CORPUSCULAR HEMOGLOBIN 32 pg (25-35); MEAN CORPUSCULAR HGB CONC 34 g/dL (31-37); MEAN CORPUSCULAR VOLUME 94 fL (79-100); MONO # 0.9 x10^3/uL (0.0-1.1); MONO % 14 % (0-9); NEUT # 3.9 x10^3uL (1.8-7.7); NEUT % 61 % (31-73); PLATELET COUNT 218 x10^3/uL (140-400); RED BLOOD COUNT 4.29 x10^6/uL (4.30-5.70); RED CELL DISTRIBUTION WIDTH 13.3 % (11.5-14.5); WHITE BLOOD COUNT 6.4 x10^3/uL (4.0-11.0)
[2018-09-19 07:12] LABS: ALBUMIN 3.1 g/dL (3.4-5.0); ALBUMIN/GLOBULIN RATIO 0.9 (1.0-1.7); CALCIUM 8.8 mg/dL (8.5-10.1); CREATININE 0.7 mg/dL (0.7-1.3); GFR 110.9; POTASSIUM 3.6 mmol/L (3.5-5.1); TOTAL BILIRUBIN 0.2 mg/dL (0.2-1.0); TOTAL PROTEIN 6.4 g/dL (6.4-8.2)
[2018-09-19] MEDS: METOPROLOL SUCC 24HR ER 50 MG TAB.ER.24H. PO SCH (08:52)
[2018-09-19] MEDS: DULoxetine HCL 30 MG CAPSULE.DR PO SCH (08:52)
[2018-09-19] MEDS: predniSONE 20 MG TABLET PO SCH (08:52)
[2018-09-19] MEDS: PANTOPRAZOLE 40 MG TABLET. PO SCH (08:52)
[2018-09-19] MEDS: risperiDONE ORAL 1 MG/ML 30ml BOTTLE. SL SCH (09:09)
[2018-09-19 15:58] VITALS: BP 137/83
[2018-09-19] MEDS: ACETAMINOPHEN 325 MG TABLET PO PRN (17:04)
[2018-09-19] MEDS: DIVALPROEX 125 MG CAP.SPRINK PO SCH (19:18)
--- NOTE | 2018-09-19 22:43 | PDOC ---
Exam Note: João Note: Please also refer to the separate dictated note~for this date of service dictated separately.~Patient seen individually. Discussed the patient with Nursing staff reviewed the chart.~Reviewed interim history and current functioning. Reviewed vital signs,~Labs/ Radiology~and current medications noted below. Continue current treatment with the changes noted in the dictated addendum note Assessment: Vital Signs/I&O: Vital Signs Date Time Temp Pulse Resp B/P (MAP) Pulse Ox O2 Delivery O2 Flow Rate FiO2 09/19/18 20:08 95 Room Air 09/19/18 15:58 97.2 71 18 137/83 (101) I & O 09/18/18 09/18/18 09/19/18 15:00 23:00 07:00 Intake Total 1200 ml 240 ml Balance 1200 ml 240 ml Labs: Laboratory Tests Test 09/19/18 06:37 White Blood Count 6.4 x10^3/uL (4.0-11.0) Red Blood Count 4.29 x10^6/uL (4.30-5.70) L Hemoglobin 13.6 g/dL (13.0-17.5) Hematocrit 40.1 % (39.0-53.0) Mean Corpuscular Volume 94 fL (79-100) Mean Corpuscular Hemoglobin 32 pg (25-35) Mean Corpuscular Hemoglobin Concent 34 g/dL (31-37) Red Cell Distribution Width 13.3 % (11.5-14.5) Platelet Count 218 x10^3/uL (140-400) Neutrophils (%) (Auto) 61 % (31-73) Lymphocytes (%) (Auto) 21 % (24-48) L Monocytes (%) (Auto) 14 % (0-9) H Eosinophils (%) (Auto) 3 % (0-3) Basophils (%) (Auto) 1 % (0-3) Neutrophils # (Auto) 3.9 x10^3uL (1.8-7.7) Lymphocytes # (Auto) 1.3 x10^3/uL (1.0-4.8) Monocytes # (Auto) 0.9 x10^3/uL (0.0-1.1) Eosinophils # (Auto) 0.2 x10^3/uL (0.0-0.7) Basophils # (Auto) 0.1 x10^3/uL (0.0-0.2) Sodium Level 142 mmol/L (136-145) Potassium Level 3.6 mmol/L (3.5-5.1) Chloride Level 106 mmol/L (98-107) Carbon Dioxide Level 28 mmol/L (21-32) Anion Gap 8 (6-14) Blood Urea Nitrogen 17 mg/dL (8-26) Creatinine 0.7 mg/dL (0.7-1.3) Estimated GFR (Cockcroft-Gault) 110.9 BUN/Creatinine Ratio 24 (6-20) H Glucose Level 91 mg/dL (70-99) Calcium Level 8.8 mg/dL (8.5-10.1) Total Bilirubin 0.2 mg/dL (0.2-1.0) Aspartate Amino Transferase (AST) 10 U/L (15-37) L Alanine Aminotransferase (ALT) 19 U/L (16-63) Alkaline Phosphatase 59 U/L (46-116) Total Protein 6.4 g/dL (6.4-8.2) Albumin 3.1 g/dL (3.4-5.0) L Albumin/Globulin Ratio 0.9 (1.0-1.7) L Current Medications: I have reviewed the current psychotropics carefully including drug interactions. Risk benefit ratio favors no change other than as noted in my dictated progress note. Diagnosis: Problems: (1) Anxiety disorder (2) Major depressive disorder, recurrent episode (3) Impulse control disorder (4) Psychosis, atypical (5) Psychotic depression (6) Mild cognitive impairment TIERRA COELHO MD Sep 19, 2018 22:43
[2018-09-19] MEDS ORDERED: ACET325T9 PO (23:48)
[2018-09-19] MEDS ORDERED: CHOL500021 PO (23:49)
[2018-09-19] MEDS ORDERED: DULO30CA43 PO (23:50)
[2018-09-19] MEDS ORDERED: DIVA125C2 PO (23:50)
[2018-09-19] MEDS ORDERED: MAG355OR17 PO (23:51)
[2018-09-19] MEDS ORDERED: LORA0.5T PO (23:51)
[2018-09-19] MEDS ORDERED: METH29OI TP (23:52)
[2018-09-19] MEDS ORDERED: OLAN5TAB5 PO (23:52)
[2018-09-19] MEDS ORDERED: MAGN2400 PO (23:52)
[2018-09-19] MEDS ORDERED: PRED20TA PO (23:53)
[2018-09-19] MEDS ORDERED: RISP1SOL6 SL (23:54)
[2018-09-20] MEDS: IPRATRPIUM/ALBUTEROL 0.5/2.5MG 3 ML NEBU. NEB SCH ×4 (05:31→20:05)
[2018-09-20 05:53] VITALS: BP 153/99
[2018-09-20] MEDS: PANTOPRAZOLE 40 MG TABLET. PO SCH (07:22)
[2018-09-20] MEDS: DULoxetine HCL 30 MG CAPSULE.DR PO SCH (07:23)
[2018-09-20] MEDS: METOPROLOL SUCC 24HR ER 50 MG TAB.ER.24H. PO SCH (07:23)
[2018-09-20] MEDS: predniSONE 20 MG TABLET PO SCH (07:23)
[2018-09-20] MEDS: risperiDONE ORAL 1 MG/ML 30ml BOTTLE. SL SCH (07:24)
--- NOTE | 2018-09-20 09:47 | PN ---
DATE: 09/18/2018 This late entry of 09/18/2018 covers the elements not covered in my initial note. SUBJECTIVE: I met with the patient in the evening and staffed at a treatment team meeting with the entire team earlier in the day. The patient slept 7-1/2 hours. Appetite 100%, compliant with medications. We discussed transition plans to home and risk associated with this and possibly alerting the Adult Protective Services for this since the patient signs for himself. REVIEW OF SYSTEMS: Hard of hearing. No CV, , pulmonary, eye system symptoms on review. MENTAL STATUS: Oriented to himself and situation. Speech is coherent. Does complain of some headaches. Abstraction fair, computation impaired, language function intact, attention span short. Mood and affect less depressed, withdrawn. Labs reviewed. IMPRESSION: Unchanged from initial note. PLAN: No change from initial note. MAN Kayce COELHO MD DR: MIRIAM/neville JOB#: [id number] / [id number]
[2018-09-20 16:19] VITALS: BP 139/84
[2018-09-20] MEDS: ACETAMINOPHEN 325 MG TABLET PO PRN (16:47)
[2018-09-20] MEDS: DIVALPROEX 125 MG CAP.SPRINK PO SCH (19:22)
--- NOTE | 2018-09-20 19:34 | PN ---
DATE: 09/19/2018 PSYCHIATRIC PROGRESS NOTE This late entry 09/19/2018 covers elements not covered in my initial note. SUBJECTIVE: I met with the patient evening of 09/19/2018. The patient slept 6-1/4 hours previous night. The patient had a good day. Does complain of headaches, but less fixated on his dry skin. REVIEW OF SYSTEMS: No CV, , pulmonary, eye system symptoms on review. He is hard of hearing. MENTAL STATUS EXAM: Oriented to himself and situation. Speech is coherent, abstraction fair, computation impaired, language function intact, attention span short. Mood and affect still somewhat depressed, anxious, but improved. LABORATORY DATA: Reviewed. IMPRESSION: Unchanged from initial note. PLAN: No change from initial note. MAN Kayce COELHO MD DR: MIRIAM/neville JOB#: [id number] / [id number]
--- NOTE | 2018-09-20 22:13 | PDOC ---
Exam Note: João Note: Please also refer to the separate dictated note~for this date of service dictated separately.~Patient seen individually. Discussed the patient with Nursing staff reviewed the chart.~Reviewed interim history and current functioning. Reviewed vital signs,~Labs/ Radiology~and current medications noted below. Continue current treatment with the changes noted in the dictated addendum note Assessment: Vital Signs/I&O: Vital Signs Date Time Temp Pulse Resp B/P (MAP) Pulse Ox O2 Delivery O2 Flow Rate FiO2 09/20/18 20:06 97 Room Air 09/20/18 16:19 97.8 65 16 139/84 (102) I & O 09/19/18 09/19/18 09/20/18 14:59 22:59 06:59 Intake Total 1200 ml 480 ml 120 ml Balance 1200 ml 480 ml 120 ml Current Medications: I have reviewed the current psychotropics carefully including drug interactions. Risk benefit ratio favors no change other than as noted in my dictated progress note. Diagnosis: Problems: (1) Anxiety disorder (2) Major depressive disorder, recurrent episode (3) Impulse control disorder (4) Psychosis, atypical (5) Psychotic depression (6) Mild cognitive impairment TIERRA COELHO MD Sep 20, 2018 22:13
[2018-09-21 06:07] VITALS: BP 162/94
[2018-09-21] MEDS: DULoxetine HCL 30 MG CAPSULE.DR PO SCH (08:17)
[2018-09-21] MEDS: PANTOPRAZOLE 40 MG TABLET. PO SCH (08:17)
[2018-09-21] MEDS: METOPROLOL SUCC 24HR ER 50 MG TAB.ER.24H. PO SCH (08:17)
[2018-09-21] MEDS: risperiDONE ORAL 1 MG/ML 30ml BOTTLE. SL SCH (08:18)
[2018-09-21] MEDS: predniSONE 20 MG TABLET PO SCH (08:18)
[2018-09-21] MEDS: IPRATRPIUM/ALBUTEROL 0.5/2.5MG 3 ML NEBU. NEB SCH ×3 (10:28→19:29)
[2018-09-21 15:56] VITALS: BP 150/92
[2018-09-21] MEDS: DIVALPROEX 125 MG CAP.SPRINK PO SCH (19:12)
--- NOTE | 2018-09-21 22:53 | PDOC ---
Exam Note: João Note: Please also refer to the separate dictated note~for this date of service dictated separately.~Patient seen individually. Discussed the patient with Nursing staff reviewed the chart.~Reviewed interim history and current functioning. Reviewed vital signs,~Labs/ Radiology~and current medications noted below. Continue current treatment with the changes noted in the dictated addendum note Assessment: Vital Signs/I&O: Vital Signs Date Time Temp Pulse Resp B/P (MAP) Pulse Ox O2 Delivery O2 Flow Rate FiO2 09/21/18 19:31 98 Room Air 09/21/18 15:56 98.2 70 18 150/92 (111) I & O 09/20/18 09/20/18 09/21/18 15:00 23:00 07:00 Intake Total 600 ml 480 ml Balance 600 ml 480 ml Current Medications: I have reviewed the current psychotropics carefully including drug interactions. Risk benefit ratio favors no change other than as noted in my dictated progress note. Diagnosis: Problems: (1) Anxiety disorder (2) Major depressive disorder, recurrent episode (3) Impulse control disorder (4) Psychosis, atypical (5) Psychotic depression (6) Mild cognitive impairment TIERRA COELHO MD Sep 21, 2018 22:53
[2018-09-22 05:49] VITALS: BP 173/109
[2018-09-22] MEDS: IPRATRPIUM/ALBUTEROL 0.5/2.5MG 3 ML NEBU. NEB SCH ×5 (05:57→20:44)
[2018-09-22] MEDS: METOPROLOL SUCC 24HR ER 50 MG TAB.ER.24H. PO SCH (06:03)
[2018-09-22] MEDS: PANTOPRAZOLE 40 MG TABLET. PO SCH (08:04)
[2018-09-22] MEDS: predniSONE 20 MG TABLET PO SCH (08:04)
[2018-09-22] MEDS: DULoxetine HCL 30 MG CAPSULE.DR PO SCH (08:04)
[2018-09-22] MEDS: risperiDONE ORAL 1 MG/ML 30ml BOTTLE. SL SCH (08:05)
[2018-09-22] MEDS: ACETAMINOPHEN 325 MG TABLET PO PRN (12:57)
[2018-09-22 16:19] VITALS: BP 166/92
--- NOTE | 2018-09-22 16:46 | RAD ---
Exam performed: CT maxillofacial. Indication: Persistent headache. Date of service: 09/22/2018,Comparison: None available Technique: Contiguous acquisitions are obtained through the maxillofacial structures without IV contrast. Coronal reformatted images are obtained and reviewed. Findings: There is opacification of both ethmoid air cells with mucoperiosteal thickening involving bilateral maxillary sinuses. Bilateral ostiomeatal complexes are preserved. Normal aeration of both frontal and sphenoid sinuses. No air-fluid level, mucoperiosteal thickening or mucus retention cyst is identified. The bony orbital margins and the intraocular contents are bilaterally symmetric and unremarkable. Both ostiomeatal complexes are preserved. Nasal bones and zygomatic arches are preserved.No abnormal fluid collections or hematoma formation seen. The visualized portion of the brain is normal. Impression: 1. Bilateral ethmoid and bilateral maxillary sinus disease PQRS Compliance Statement: One or more of the following individualized dose reduction techniques were utilized for this examination: 1. Automated exposure control 2. Adjustment of the mA and/or kV according to patient size 3. Use of iterative reconstruction technique Electronically signed by: Angelica Venegas MD (09/22/2018 4:43 PM) [facility]
[2018-09-22] MEDS: DIVALPROEX 125 MG CAP.SPRINK PO SCH (20:19)
--- NOTE | 2018-09-22 22:04 | PN ---
DATE: 09/21/2018 PSYCHIATRIC PROGRESS NOTE This late entry 09/21/2018 covers elements not covered in my initial note. SUBJECTIVE: The patient has been doing better, less anxious. No suicidal ideation. Denies being depressed. He is slightly hard of hearing, but no CV, , pulmonary, eye system symptoms on review. MENTAL STATUS EXAM: Reasonably oriented. Speech coherent. Abstraction fair. Mood and affect is improved. IMPRESSION: Unchanged from initial note. PLAN: No change from initial note. MAN Kayce COELHO MD DR: MIRIAM/neville JOB#: [id number] / [id number]
--- NOTE | 2018-09-22 22:35 | PDOC ---
Exam Note: João Note: Please also refer to the separate dictated note~for this date of service dictated separately.~Patient seen individually. Discussed the patient with Nursing staff reviewed the chart.~Reviewed interim history and current functioning. Reviewed vital signs,~Labs/ Radiology~and current medications noted below. Continue current treatment with the changes noted in the dictated addendum note Assessment: Vital Signs/I&O: Vital Signs Date Time Temp Pulse Resp B/P (MAP) Pulse Ox O2 Delivery O2 Flow Rate FiO2 09/22/18 20:44 98 Room Air 09/22/18 16:19 98.2 64 18 166/92 (116) I & O 09/21/18 09/21/18 09/22/18 14:59 22:59 06:59 Intake Total 480 ml 240 ml 240 ml Balance 480 ml 240 ml 240 ml Current Medications: I have reviewed the current psychotropics carefully including drug interactions. Risk benefit ratio favors no change other than as noted in my dictated progress note. Diagnosis: Problems: (1) Anxiety disorder (2) Major depressive disorder, recurrent episode (3) Impulse control disorder (4) Psychosis, atypical (5) Psychotic depression (6) Mild cognitive impairment TIERRA COELHO MD Sep 22, 2018 22:35
[2018-09-23] MEDS ORDERED: LORazepam 0.5 MG TABLET PO PRN (00:30)
--- NOTE | 2018-09-23 05:18 | PN ---
DATE: 09/20/2018 PSYCHIATRIC PROGRESS NOTE This late entry 09/20/2018 covers the elements not covered in my initial note. SUBJECTIVE: I met with the patient in the evening. The patient slept 6-1/4 hours previous night, but he still complains of some headaches, but states his mood is better. I met with him in his room. REVIEW OF SYSTEMS: No CV, , pulmonary, eye, ENT system symptoms on review. MENTAL STATUS EXAM: Oriented to himself and situation. Speech is coherent, has some latency, slightly hard of hearing. Abstraction fair, computation impaired, language function intact. Mood and affect is improved. LABORATORY DATA: Reviewed. IMPRESSION: Unchanged from initial note. PLAN: No change from initial note. MAN Kayce COELHO MD DR: MIRIAM/neville JOB#: [id number] / [id number]
[2018-09-23] MEDS: IPRATRPIUM/ALBUTEROL 0.5/2.5MG 3 ML NEBU. NEB SCH ×4 (05:31→22:26)
[2018-09-23 05:47] VITALS: BP 153/83
[2018-09-23 07:02] LABS: CALCIUM 8.8 mg/dL (8.5-10.1); CREATININE 0.7 mg/dL (0.7-1.3); GFR 110.9; POTASSIUM 3.8 mmol/L (3.5-5.1)
[2018-09-23] MEDS: predniSONE 20 MG TABLET PO SCH (08:00)
[2018-09-23] MEDS: PANTOPRAZOLE 40 MG TABLET. PO SCH (08:00)
[2018-09-23] MEDS: DULoxetine HCL 30 MG CAPSULE.DR PO SCH (08:01)
[2018-09-23] MEDS: METOPROLOL SUCC 24HR ER 50 MG TAB.ER.24H. PO SCH (08:01)
[2018-09-23] MEDS: risperiDONE ORAL 1 MG/ML 30ml BOTTLE. SL SCH (08:02)
[2018-09-23] MEDS: CHOLECALCIFEROL (VITAMIN D3) 50,000 UNIT CAPSULE PO SCH (08:03)
[2018-09-23] MEDS: ACETAMINOPHEN 325 MG TABLET PO PRN (08:48)
[2018-09-23 15:50] VITALS: BP 125/72
[2018-09-23] MEDS: AMOXICILLIN/K CLAV 875/125MG TABLET. PO SCH (19:34)
[2018-09-23] MEDS: LACTOBACILLUS RHAMNOSUS GG 1 CAPSULE. PO SCH (19:34)
[2018-09-23] MEDS: DIVALPROEX 125 MG CAP.SPRINK PO SCH (19:34)
--- NOTE | 2018-09-23 22:33 | PDOC ---
Exam Note: João Note: Please also refer to the separate dictated note~for this date of service dictated separately.~Patient seen individually. Discussed the patient with Nursing staff reviewed the chart.~Reviewed interim history and current functioning. Reviewed vital signs,~Labs/ Radiology~and current medications noted below. Continue current treatment with the changes noted in the dictated addendum note Assessment: Vital Signs/I&O: Vital Signs Date Time Temp Pulse Resp B/P (MAP) Pulse Ox O2 Delivery O2 Flow Rate FiO2 09/23/18 22:26 Room Air 09/23/18 16:02 96 09/23/18 15:50 97.4 80 16 125/72 (89) I & O 09/22/18 09/22/18 09/23/18 14:59 22:59 06:59 Intake Total 1200 ml 200 ml 120 ml Balance 1200 ml 200 ml 120 ml Labs: Laboratory Tests Test 09/23/18 06:32 Erythrocyte Sedimentation Rate 11 (0-15) Sodium Level 142 mmol/L (136-145) Potassium Level 3.8 mmol/L (3.5-5.1) Chloride Level 104 mmol/L (98-107) Carbon Dioxide Level 29 mmol/L (21-32) Anion Gap 9 (6-14) Blood Urea Nitrogen 12 mg/dL (8-26) Creatinine 0.7 mg/dL (0.7-1.3) Estimated GFR (Cockcroft-Gault) 110.9 Glucose Level 83 mg/dL (70-99) Calcium Level 8.8 mg/dL (8.5-10.1) C-Reactive Protein 0.7 mg/L (0-3.3) Current Medications: Meds: Current Medications Medications (Trade) Dose Ordered Sig/Radhames Route PRN Reason Start Time Stop Time Status Last Admin Dose Admin Amoxicillin/ Clavulanate Potassium (Augmentin 875/ 125mg) 1 tab BID PO 09/23/18 21:00 10/03/18 20:59 09/23/18 19:34 Lactobacillus Rhamnosus (Culturelle) 1 cap BID PO 09/23/18 21:00 09/23/18 19:34 I have reviewed the current psychotropics carefully including drug interactions. Risk benefit ratio favors no change other than as noted in my dictated progress note. Diagnosis: Problems: (1) Anxiety disorder (2) Major depressive disorder, recurrent episode (3) Impulse control disorder (4) Psychosis, atypical (5) Psychotic depression (6) Mild cognitive impairment TIERRA COELHO MD Sep 23, 2018 22:33
--- NOTE | 2018-09-23 23:06 | PN ---
DATE: 09/22/2018 PSYCHIATRIC PROGRESS NOTE This late entry 09/22/2018 covers elements not covered in my initial note. SUBJECTIVE: I met with the patient in the evening of 09/22/2018 in his room. He slept 6-1/[address] head shows bilateral ethmoid and maxillary sinusitis. We will defer to Dr. Norman. Blood pressure was somewhat elevated consequent probably to the prednisone. He complains of ongoing headaches and that is the reason for the CT head. REVIEW OF SYSTEMS: Additionally, positive for hard of hearing. No CV, , pulmonary, eye system symptoms on review. MENTAL STATUS EXAMINATION: Oriented to himself and situation. Speech has some latency, coherent. Abstraction fair, computation impaired, language function intact. Attention span short. Mood and affect remain somewhat withdrawn at times. LABORATORY DATA: Reviewed. IMPRESSION: Unchanged from initial note. PLAN: No change from initial note. MAN Kayce COELHO MD DR: MIRIAM/neville JOB#: [id number] / [id number]
[2018-09-24 05:32] VITALS: BP 112/89
[2018-09-24] MEDS: IPRATRPIUM/ALBUTEROL 0.5/2.5MG 3 ML NEBU. NEB SCH ×3 (05:42→15:37)
[2018-09-24] MEDS: predniSONE 20 MG TABLET PO SCH (08:00)
[2018-09-24] MEDS: AMOXICILLIN/K CLAV 875/125MG TABLET. PO SCH (08:02)
[2018-09-24] MEDS: PANTOPRAZOLE 40 MG TABLET. PO SCH (08:02)
[2018-09-24] MEDS: LACTOBACILLUS RHAMNOSUS GG 1 CAPSULE. PO SCH (08:02)
[2018-09-24] MEDS: DULoxetine HCL 30 MG CAPSULE.DR PO SCH (08:03)
[2018-09-24 08:05] VITALS: BP 112/89
[2018-09-24] MEDS: METOPROLOL SUCC 24HR ER 50 MG TAB.ER.24H. PO SCH (08:05)
[2018-09-24] MEDS: risperiDONE ORAL 1 MG/ML 30ml BOTTLE. SL SCH (08:07)
[2018-09-24] MEDS: ACETAMINOPHEN 325 MG TABLET PO PRN (10:07)
--- NOTE | 2018-09-24 18:12 | PDOC ---
Exam Note: João Note: Please also refer to the separate dictated note~for this date of service dictated separately.~Patient seen individually. Discussed the patient with Nursing staff reviewed the chart.~Reviewed interim history and current functioning. Reviewed vital signs,~Labs/ Radiology~and current medications noted below. Continue current treatment with the changes noted in the dictated addendum note Assessment: Vital Signs/I&O: Vital Signs Date Time Temp Pulse Resp B/P (MAP) Pulse Ox O2 Delivery O2 Flow Rate FiO2 09/24/18 15:38 95 Room Air 09/24/18 08:05 78 112/89 09/24/18 05:32 98.3 18 I & O 09/23/18 09/23/18 09/24/18 15:00 23:00 07:00 Intake Total 600 ml 480 ml Balance 600 ml 480 ml Current Medications: Meds: Current Medications Medications (Trade) Dose Ordered Sig/Radhames Route PRN Reason Start Time Stop Time Status Last Admin Dose Admin Amoxicillin/ Clavulanate Potassium (Augmentin 875/ 125mg) 1 tab BID PO 09/23/18 21:00 10/03/18 20:59 09/24/18 08:02 Lactobacillus Rhamnosus (Culturelle) 1 cap BID PO 09/23/18 21:00 09/24/18 08:02 I have reviewed the current psychotropics carefully including drug interactions. Risk benefit ratio favors no change other than as noted in my dictated progress note. Diagnosis: Problems: (1) Mild cognitive impairment (2) Psychotic depression (3) Psychosis, atypical (4) Impulse control disorder (5) Major depressive disorder, recurrent episode (6) Anxiety disorder TIERRA COELHO MD Sep 24, 2018 18:12
--- NOTE | 2018-09-24 21:09 | PN ---
DATE: 09/23/2018 PYSCHIATRIC PROGRESS NOTE This is a late entry , covers the elements not covered in my initial note. SUBJECTIVE: I met with the patient evening of 09/23/2018. The patient slept 8-1/4 hours previous night. He has had no behavioral problems. He had questions about a CT head and I addressed this with him. We will repeat a valproic acid level in the morning of 09/24/2018. REVIEW OF SYSTEMS: Hard of hearing. No CV, , pulmonary, eye system symptoms on review. MENTAL STATUS EXAM: Oriented to himself and situation. Speech is coherent, a little pressured at times. Abstraction fair, computation impaired, language function intact. Mood and affect is improved. LABORATORY DATA: Reviewed. IMPRESSION: Unchanged from initial note. PLAN: Continue current psychotropics. Check a valproic acid level in the morning of 09/24/2018. Possible transition to outpatient treatment after that. TIERRA COELHO MD DR: MIRIAM/neville JOB#: [id number] / [id number]
--- NOTE | 2018-09-25 22:39 | DS ---
DATE OF DISCHARGE: 09/24/2018 DISCHARGE SUMMARY/PSYCHIATRIC PROGRESS NOTE This late entry 09/24/2018 covers elements not covered in my initial note. Please refer to the admission history for details. HISTORY OF PRESENT ILLNESS: Briefly, the patient is a 73-year-old male referred to us from [facility] Room where he presented from home on account of worsening symptoms of depression and suicidal ideation along with marked paranoia. He lives alone at home. Behaviors were deemed dangerous and he was referred for inpatient psychiatric stabilization. SIGNIFICANT FINDINGS AND CLINICAL COURSE: Following admission, the patient was seen daily individually by myself from a psychiatric standpoint. Medical followup with Dr. Norman. The patient was extremely depressed, withdrawn, and paranoid. Being hard of hearing worsened his communication. He was isolative, hopeless, helpless, worthless, and overwhelmed with his psychosocial situation, living alone. Adjustments were made in his psychotropics and he seemed to respond to a combination of Risperdal concentrate 1.125 mg daily, Cymbalta 90 mg a day, Ativan 0.25 mg q.2 hours p.r.n. anxiety, Zyprexa p.r.n., Depakote Sprinkles 375 mg p.o. at bedtime for his quasi migraine headaches and this was not increased despite a subtherapeutic level of 29 since the headaches were better. REVIEW OF SYSTEMS: Prior to discharge on 09/24/2018, no CV, , pulmonary, eye system symptoms on review. He is hard of hearing. MENTAL STATUS EXAM: Oriented to himself and situation. Speech is coherent, has some latency. Abstraction fair, computation impaired, language function intact, attention span short. Mood and affect is improved. No suicidal or homicidal ideation at discharge. Extensive outpatient services had been initiated per social service staff. We recommended a more structured placement for the patient, but he was not agreeable to this. No suicidal ideation at discharge. FINAL DIAGNOSES: Major depressive disorder, recurrent with psychotic features, mild cognitive impairment; anxiety disorder, unspecified; impulse control disorder, unspecified; hard of hearing, seasonal allergies, asthma, bronchitis, eosinophilia, GERD, hypertension, COPD. Rest unchanged from admission. DISCHARGE MEDICATIONS: Please refer to the MRAD. DISCHARGE INSTRUCTIONS: Outpatient psychiatric and medical followup in [place] as arranged. Time for discharge day management greater than 30 minutes. MAN Kayce COELHO MD DR: Sherri JOB#: [id number] / [id number]
== END 2018-09-24 17:00 | disposition home health service (06) | DRG 885 ==
LOC: GEROPSY 10:04
PROVIDERS: ADMIT Psychiatry & Neurology Psychiatry; ATTEND Psychiatry & Neurology Psychiatry
DX: F33.3 Major depressive disorder, recurrent, severe with psychotic symptoms (principal); R45.851 Suicidal ideations; F09 Unspecified mental disorder due to known physiological condition; F41.9 Anxiety disorder, unspecified; F63.9 Impulse disorder, unspecified; G31.84 Mild cognitive impairment of uncertain or unknown etiology; H91.90 Unspecified hearing loss, unspecified ear; I10 Essential (primary) hypertension; R07.89 Other chest pain; J32.0 Chronic maxillary sinusitis; E66.9 Obesity, unspecified; J32.2 Chronic ethmoidal sinusitis; J45.909 Unspecified asthma, uncomplicated; K21.9 Gastro-esophageal reflux disease without esophagitis; Z91.19 Patient's noncompliance with other medical treatment and regimen; Z79.899 Other long term (current) drug therapy; Z88.8 Allergy status to other drugs, medicaments and biological substances; Z68.29 Body mass index [BMI] 29.0-29.9, adult
CPT/HCPCS: 36415; 70450; 70486; 71045; 80048; 80053; 80061; 80164; 82306; 83036; 83540; 83550; 83735; 84436; 84443; 84480; 84484; 85025; 85651; 86140; 86592; 93005; 94640; J7512; J7613; J7620